=== PATIENT | male | born 1975 | race Caucasian/White ===

== ENCOUNTER 2017-08-13 22:43 | Inpatient (IN) | payer MEDICARE, MEDICAID ==
[2017-08-13] MEDS ORDERED: Diltiazem 25 MG/5 ML SDV IVPUSH ONE ×2 (23:09→23:39)
--- NOTE | 2017-08-13 23:14 | EDM.PDOC ---
ED HPI GENERAL MEDICAL PROBLEM - General Stated Complaint: CHEST PAIN Time Seen by Provider: 08/13/17 22:55 Source of Information: Reports: Patient History Limitations: Reports: No Limitations - History of Present Illness INITIAL COMMENTS - FREE TEXT/NARRATIVE: c/o palpitations in good health, 1h [employer] he had palpitations, chest tightness and pain down his LUE smokes 1 ppd similar episode once a number of yrs ago, came to ED and exam was fine then no prior CV or pul problems HR 175 on arrival, EKG with AF with RVR and rate 167, then he coughed and rate dropped to 85 and sxs resolved, however another EKG showed AF with RVR and rate 189, dilt 20 mg IV ordered no other sxs - Related Data Allergies Allergy/AdvReac Type Severity Reaction Status Date / Time No Known Allergies Allergy Verified 08/13/17 23:39 Home Meds: Home Meds hydrOXYzine Pamoate [Vistaril] 100 mg PO Q6H PRN 07/30/14 [History] DULoxetine [Cymbalta] 60 mg PO DAILY 10/26/14 [History] Aspirin 325 mg PO DAILY 03/22/15 [History] Gabapentin [Neurontin] 300 mg PO TID 03/22/15 [History] Meloxicam [Mobic] 7.5 mg PO BID PRN 08/26/15 [History] Past Medical History - Past Health History Medical/Surgical History: Denies Medical/Surgical History Respiratory History: Reports: Bronchitis, Recurrent Other Respiratory History: BRONCHITIS, USES INHAILER Gastrointestinal History: Reports: GERD Other Gastrointestinal History: occ dearrhea Musculoskeletal History: Reports: Back Pain, Chronic Neurological History: Reports: Other (See Below) Other Neuro History: SIATICA Psychiatric History: Reports: Anxiety, Bipolar, Depression, Panic Attack - Past Surgical History GI Surgical History: Reports: Other (See Below) Social & Family History - Tobacco Use Smoking Status *Q: Current Every Day Smoker Years of Tobacco use: 10 Packs/Tins Daily: 1 - Alcohol Use Days Per Week of Alcohol Use: 0 - Recreational Drug Use Recreational Drug Use: No - Living Situation & Occupation Living situation: Reports: with Significant Other Occupation: Employed ED ROS GENERAL - Review of Systems Review Of Systems: See Below Constitutional: Reports: No Symptoms HEENT: Reports: No Symptoms Respiratory: Reports: No Symptoms Cardiovascular: Reports: Chest Pain, Palpitations Endocrine: Reports: No Symptoms GI/Abdominal: Reports: No Symptoms : Reports: No Symptoms Musculoskeletal: Reports: No Symptoms Skin: Reports: No Symptoms Neurological: Reports: No Symptoms Psychiatric: Reports: No Symptoms Hematologic/Lymphatic: Reports: No Symptoms Immunologic: Reports: No Symptoms ED EXAM, GENERAL - Physical Exam Exam: See Below Exam Limited By: No Limitations General Appearance: Alert, WD/WN, No Apparent Distress, Other (alert, pleasant, cooperative, nonill) Eye Exam: Bilateral Eye: Normal Inspection Ears: Normal External Exam, Normal Canal Nose: Normal Inspection Throat/Mouth: Normal Inspection, Normal Lips, Normal Teeth, Normal Gums, Normal Oropharynx, Normal Voice, No Airway Compromise Head: Atraumatic, Normocephalic Neck: Normal Inspection, Supple, Non-Tender, Full Range of Motion Respiratory/Chest: No Respiratory Distress, Lungs Clear, Normal Breath Sounds, No Accessory Muscle Use, Chest Non-Tender Cardiovascular: No Edema, No Gallop, No JVD, Tachycardia, Irregularly Irregular , Other (2/6 ABISAI at LSB) GI/Abdominal: Soft, Non-Tender, No Distention Back Exam: Normal Inspection, Full Range of Motion, NT Extremities: Normal Inspection, Normal Range of Motion, Non-Tender, No Pedal Edema Neurological: Alert, Oriented, CN II-XII Intact, Normal Cognition, No Motor/ Sensory Deficits Psychiatric: Normal Affect, Normal Mood Skin Exam: Warm, Dry, Intact, Normal Color, No Rash Lymphatic: No Adenopathy Course - Vital Signs Last Recorded V/S: Last Vital Signs Temp 36.5 C 08/13/17 23:42 Pulse 176 H 08/13/17 23:42 Resp 24 H 08/13/17 23:42 BP 137/94 H 08/13/17 23:49 Pulse Ox 99 08/13/17 23:42 - Orders/Labs/Meds Orders: Active Orders 24 hr Category Date Time Status EKG Documentation Completion [RC] ASDIRECTED Care 08/13/17 23:05 Active Chest 2V [CR] Stat Exams 08/13/17 23:05 Taken DD [D-DIMER QUANTITATIVE] [COAG] Stat Lab 08/14/17 02:02 Ordered UA W/MICROSCOPIC [URIN] Stat Lab 08/14/17 00:25 Ordered Sodium Chloride 0.9% [Normal Saline] 1,000 ml Med 08/13/17 23:15 Active IV ASDIRECTED Sodium Chloride 0.9% [Normal Saline] 1,000 ml Med 08/14/17 00:30 Active IV ASDIRECTED EKG 12 Lead [EK] Routine Ther 08/13/17 23:04 Ordered Medication Orders Sodium Chloride (Normal Saline) 1,000 mls @ 0 mls/hr IV ASDIRECTED PENNY Stop: 08/17/17 23:04 Last Infusion: 08/14/17 00:26 Dose: 999 mls/hr Admin: 08/13/17 23:32 Dose: 25 mls/hr Sodium Chloride (Normal Saline) 1,000 mls @ 999 mls/hr IV ASDIRECTED PENNY Last Admin: 08/14/17 01:31 Dose: 999 mls/hr Labs: Laboratory Tests 08/13/17 08/13/17 08/13/17 Range/Units 23:15 23:15 23:15 WBC 10.9 (4.5-12.0) X10-3/uL RBC 5.13 (4.30-5.75) x10(6)uL Hgb 16.6 H (11.5-15.5) g/dL Hct 47.7 (30.0-51.3) % MCV 93.0 (80-96) fL MCH 32.4 (27.7-33.6) pg MCHC 34.9 (32.2-35.4) g/dL RDW 12.2 (11.5-15.5) % Plt Count 271 (125-369) X10(3)uL MPV 7.8 (7.4-10.4) fL Neut % (Auto) 52.4 (46-82) % Lymph % (Auto) 34.8 (13-37) % Valley % (Auto) 6.4 (4-12) % Eos % (Auto) 4 (1.0-5.0) % Baso % (Auto) 3 H (0-2) % Neut # (Auto) 5.7 (1.6-8.3) # Lymph # (Auto) 3.8 (0.6-5.0) # Valley # (Auto) 0.7 (0.0-1.3) # Eos # (Auto) 0.4 (0.0-0.8) # Baso # (Auto) 0.3 H (0.0-0.2) # PT (8.7-11.1) INR (0.89-1.13) Sodium 138 (135-145) mmol/L Potassium 3.5 (3.5-5.3) mmol/L Chloride 101 (100-110) mmol/L Carbon Dioxide 24 (21-32) mmol/L BUN 9 (7-18) mg/dL Creatinine 0.9 (0.70-1.30) mg/dL Est Cr Clr Drug Dosing TNP Estimated GFR (MDRD) > 60 (>60) BUN/Creatinine Ratio 10.0 (9-20) Glucose 145 H (80-116) mg/dL Calcium 8.8 (8.6-10.2) mg/dL Total Bilirubin 0.5 (0.1-1.3) mg/dL AST 10 (5-25) IU/L ALT 60 H (12-36) U/L Alkaline Phosphatase 98 (56-112) IU/L Troponin I < 0.017 L (<0.017-0.056) ng/mL C-Reactive Protein < 0.2 L (0.5-0.9) mg/dL NT-Pro-B Natriuret Pep 6 (<=125) pg/mL Total Protein 7.8 (6.0-8.0) g/dL Albumin 4.0 (3.5-5.2) g/dL Globulin 3.8 g/dL Albumin/Globulin Ratio 1.1 TSH, Ultra Sensitive 4.15 H (0.36-3.74) IU/mL Urine Color (YELLOW) Urine Appearance (CLEAR) Urine pH (5.0-6.5) Ur Specific Holloway (1.010-1.025) Urine Protein (NEGATIVE) mg/dL Urine Glucose (UA) (NEGATIVE) mg/dL Urine Ketones (NEGATIVE) mg/dL Urine Occult Blood (NEGATIVE) Urine Nitrite (NEGATIVE) Urine Bilirubin (NEGATIVE) Urine Urobilinogen (NEGATIVE) mg/dL Ur Leukocyte Esterase (NEGATIVE) Urine RBC (0) Urine WBC (0) Ur Squamous Epith Cells (NS,R,O) Urine Bacteria (NS) 08/13/17 08/14/17 Range/Units 23:15 00:25 WBC (4.5-12.0) X10-3/uL RBC (4.30-5.75) x10(6)uL Hgb (11.5-15.5) g/dL Hct (30.0-51.3) % MCV (80-96) fL MCH (27.7-33.6) pg MCHC (32.2-35.4) g/dL RDW (11.5-15.5) % Plt Count (125-369) X10(3)uL MPV (7.4-10.4) fL Neut % (Auto) (46-82) % Lymph % (Auto) (13-37) % Valley % (Auto) (4-12) % Eos % (Auto) (1.0-5.0) % Baso % (Auto) (0-2) % Neut # (Auto) (1.6-8.3) # Lymph # (Auto) (0.6-5.0) # Valley # (Auto) (0.0-1.3) # Eos # (Auto) (0.0-0.8) # Baso # (Auto) (0.0-0.2) # PT 10.0 (8.7-11.1) INR 0.99 (0.89-1.13) Sodium (135-145) mmol/L Potassium (3.5-5.3) mmol/L Chloride (100-110) mmol/L Carbon Dioxide (21-32) mmol/L BUN (7-18) mg/dL Creatinine (0.70-1.30) mg/dL Est Cr Clr Drug Dosing Estimated GFR (MDRD) (>60) BUN/Creatinine Ratio (9-20) Glucose (80-116) mg/dL Calcium (8.6-10.2) mg/dL Total Bilirubin (0.1-1.3) mg/dL AST (5-25) IU/L ALT (12-36) U/L Alkaline Phosphatase (56-112) IU/L Troponin I (<0.017-0.056) ng/mL C-Reactive Protein (0.5-0.9) mg/dL NT-Pro-B Natriuret Pep (<=125) pg/mL Total Protein (6.0-8.0) g/dL Albumin (3.5-5.2) g/dL Globulin g/dL Albumin/Globulin Ratio TSH, Ultra Sensitive (0.36-3.74) IU/mL Urine Color Yellow (YELLOW) Urine Appearance Clear (CLEAR) Urine pH 5.0 (5.0-6.5) Ur Specific [place]ay 1.010 (1.010-1.025) Urine Protein Negative (NEGATIVE) mg/dL Urine Glucose (UA) Normal (NEGATIVE) mg/dL Urine Ketones Negative (NEGATIVE) mg/dL Urine Occult Blood Negative (NEGATIVE) Urine Nitrite Negative (NEGATIVE) Urine Bilirubin Negative (NEGATIVE) Urine Urobilinogen Normal (NEGATIVE) mg/dL Ur Leukocyte Esterase Negative (NEGATIVE) Urine RBC 0-5 (0) Urine WBC 0-5 (0) Ur Squamous Epith Cells Occasional (NS,R,O) Urine Bacteria Rare H (NS) Meds: Medications Generic Name Dose Route Start Last Admin Trade Name Freq PRN Reason Stop Dose Admin Sodium Chloride 1,000 mls @ 0 mls/hr 08/13/17 23:15 08/14/17 00:26 Normal Saline IV 08/17/17 23:04 999 mls/hr ASDIRECTED PENNY Infusion KVO Sodium Chloride 1,000 mls @ 999 mls/hr 08/14/17 00:30 08/14/17 01:31 Normal Saline IV 999 mls/hr ASDIRECTED PENNY Administration Discontinued Medications Generic Name Dose Route Start Last Admin Trade Name Freq PRN Reason Stop Dose Admin Aspirin 324 mg 08/13/17 23:17 08/13/17 23:24 Aspirin PO 08/13/17 23:18 324 mg ONETIME ONE Administration Diltiazem HCl 20 mg 08/13/17 23:09 08/13/17 23:24 Diltiazem IVPUSH 08/13/17 23:10 20 mg ONETIME ONE Administration Diltiazem HCl 20 mg 08/13/17 23:39 08/13/17 23:49 Diltiazem IVPUSH 08/13/17 23:40 20 mg ONETIME ONE Administration - Re-Assessments/Exams Free Text/Narrative Re-Assessment/Exam: 08/14/17 02:06 CxR neg, EKG suggests recent posterior infarct altho shows no acute change c/w previous 03-22-15, nevertheless will obtain a d-dimer and admit to r/o [facility] has had palpitations at least 2x in past altho there is no record of previous AF pt has moderate dehydration with low BP (improved with IVF) and elevated hgb dehydration and caffeine abuse may have triggered AF, yet pt also a smoker and at risk for CAD will need to admit to r/o [place] also with inc'd ALT 60 of unclear clinical sig, has been inc'd in past CRP undetectable, no evidence of infection pt briefly converted to SR with cough, HR decreased 30 bpm after initial diltiazem 20 mg IV and then coverted to SR after a 2nd diltiazem 20 mg IV Departure - Departure Time of Disposition: 02:13 Disposition: Refer to Observation Condition: Good Clinical Impression: Chest pain, rule out acute myocardial infarction, Paroxysmal atrial fibrillation with rapid ventricular response, Moderate dehydration, Caffeine abuse, Current smoker, Hypotension, Elevated hemoglobin - Discharge Information Referrals: Idalia Santana NP [Primary Care Provider] - - My Orders Last 24 Hours: My Active Orders 08/13/17 23:04 EKG 12 Lead [EK] Routine 08/13/17 23:05 EKG Documentation Completion [RC] ASDIRECTED Chest 2V [CR] Stat 08/13/17 23:15 Sodium Chloride 0.9% [Normal Saline] 1,000 ml IV ASDIRECTED 08/14/17 00:25 UA W/MICROSCOPIC [URIN] Stat 08/14/17 00:30 Sodium Chloride 0.9% [Normal Saline] 1,000 ml IV ASDIRECTED 08/14/17 02:02 DD [D-DIMER QUANTITATIVE] [COAG] Stat - Assessment/Plan Last 24 Hours: My Active Orders 08/13/17 23:04 EKG 12 Lead [EK] Routine 08/13/17 23:05 EKG Documentation Completion [RC] ASDIRECTED Chest 2V [CR] Stat 08/13/17 23:15 Sodium Chloride 0.9% [Normal Saline] 1,000 ml IV ASDIRECTED 08/14/17 00:25 UA W/MICROSCOPIC [URIN] Stat 08/14/17 00:30 Sodium Chloride 0.9% [Normal Saline] 1,000 ml IV ASDIRECTED 08/14/17 02:02 DD [D-DIMER QUANTITATIVE] [COAG] Stat
[2017-08-13] MEDS ORDERED: Sodium Chloride 0.9% 1,000 ML IV SCH (23:15)
[2017-08-13] MEDS ORDERED: Aspirin 81 MG Tab.Chew PO ONE (23:17)
[2017-08-14] MEDS ORDERED: Sodium Chloride 0.9% 1,000 ML IV SCH ×2 (00:30→02:30)
[2017-08-14] MEDS ORDERED: Ondansetron 4 MG/2 ML SDV IV PRN (02:16)
[2017-08-14] MEDS ORDERED: Acetaminophen 325 MG Tab PO PRN (02:16)
[2017-08-14] MEDS ORDERED: HYDROXYZINE PAMOATE 100 MG PO PRN (02:25)
[2017-08-14] MEDS ORDERED: Heparin Sodium 5,000 Units/ML Vial IVPUSH ONE (08:16)
[2017-08-14] MEDS ORDERED: Heparin Sodium/0.45% NaCl 500 ML IV SCH (08:30)
[2017-08-14] MEDS ORDERED: Heparin Sodium/D5W 25,000 UNITS/500 ML BAG IV SCH (08:30)
[2017-08-14] MEDS ORDERED: Gabapentin 300 MG Cap PO SCH (09:00)
[2017-08-14] MEDS ORDERED: Non-Formulary Medication 1 Each (Aspirin [Aspirin] 325 MG) PO SCH (09:00)
[2017-08-14] MEDS ORDERED: DULoxetine 60 MG Cap PO SCH (09:00)
[2017-08-14] MEDS ORDERED: hydrOXYzine HCl 25 MG Tab PO PRN (10:03)
[2017-08-14] MEDS ORDERED: hydrOXYzine HCl 25 MG Tab PO ONE (10:04)
[2017-08-14] MEDS ORDERED: Gabapentin 600 MG Tab PO SCH (10:15)
--- NOTE | 2017-08-14 12:23 | CR ---
INDICATION: Atrial fibrillation, palpitations, chest pressure. CHEST: PA and lateral views of the chest, 08/14/2017, were compared with 2014 and revealed the heart to remain normal in size and shape. Mediastinum and bony thorax were unremarkable. Overlying EKG leads are noted. An active infiltrate or effusion was not identified, with some pleural thickening in the upper lung watson again noted, compatible with mild pleural fibrosis. IMPRESSION: No acute process. MTDD
[2017-08-14] MEDS ORDERED: Metoprolol Tartrate 25 MG Tab PO ONE (12:29)
--- NOTE | 2017-08-14 13:36 | PCM.HP ---
H&P History of Present Illness - General Date of Service: 08/14/17 Admit Problem/Dx: Admission Diagnosis/Problem Admission Diagnosis/Problem Chest pain, rule out acute myocardial infarction - Related Data Allergies/Adverse Reactions: Allergies Allergy/AdvReac Type Severity Reaction Status Date / Time No Known Allergies Allergy Verified 08/13/17 23:39 Home Medications: Home Meds hydrOXYzine Pamoate [Vistaril] 100 mg PO Q6H PRN 07/30/14 [History] DULoxetine [Cymbalta] 60 mg PO DAILY 10/26/14 [History] Gabapentin [Neurontin] 600 mg PO BID@08,1600 03/22/15 [History] Meloxicam [Mobic] 7.5 mg PO DAILY 08/26/15 [History] Aspirin [Ecotrin] 81 mg PO DAILY 08/14/17 [History] Lurasidone HCl [Latuda] 40 mg PO BEDTIME 08/14/17 [History] Meloxicam [Mobic] 7.5 mg PO DAILY PRN 08/14/17 [History] hydrOXYzine Pamoate [Hydroxyzine Pamoate] 25 mg PO DAILY 08/14/17 [History] hydrOXYzine Pamoate [Hydroxyzine Pamoate] 25 mg PO DAILY PRN 08/14/17 [History] Past Medical History - Past Health History Medical/Surgical History: Denies Medical/Surgical History HEENT History: Reports: Impaired Vision Other HEENT History: wears glasses Cardiovascular History: Reports: Other (See Below) Other Cardiovascular History: presented tonight with a-fib and rapid heartrate of 170 to ER Respiratory History: Reports: Bronchitis, Recurrent Other Respiratory History: BRONCHITIS, USES INHAILER does not use any more Gastrointestinal History: Reports: Colon Polyp, GERD, Hemorrhoids Other Gastrointestinal History: occ dearrhea Musculoskeletal History: Reports: Back Pain, Chronic Neurological History: Reports: Other (See Below) Other Neuro History: SIATICA Psychiatric History: Reports: Addiction, Anxiety, Bipolar, Depression, Panic Attack - Infectious Disease History Infectious Disease History: Reports: Chicken Pox - Past Surgical History HEENT Surgical History: Reports: None Cardiovascular Surgical History: Reports: None Respiratory Surgical History: Reports: None GI Surgical History: Reports: Colonoscopy, Hernia, Inguinal Neurological Surgical History: Reports: None Musculoskeletal Surgical History: Reports: None Dermatological Surgical History: Reports: None Social & Family History - Family History Family Medical History: Noncontributory - Tobacco Use Smoking Status *Q: Current Every Day Smoker Years of Tobacco use: 27 Packs/Tins Daily: 1 Second Hand Smoke Exposure: No - Caffeine Use Caffeine Use: Reports: Coffee - Alcohol Use Days Per Week of Alcohol Use: 0 - Recreational Drug Use Recreational Drug Use: No - Living Situation & Occupation Living situation: Reports: with Significant Other Occupation: Employed Exam - Vital Signs Vital Signs: Last Vital Signs Temp 97.8 F 08/14/17 07:30 Pulse 63 08/14/17 12:37 Resp 18 08/14/17 12:00 BP 135/90 08/14/17 12:37 Pulse Ox 99 08/14/17 12:00 Weight: 95.889 kg - Patient Data Lab Results Last 24 hrs: Laboratory Results - last 24 hr 08/13/17 08/13/17 08/13/17 Range/Units 23:15 23:15 23:15 WBC 10.9 (4.5-12.0) X10-3/uL RBC 5.13 (4.30-5.75) x10(6)uL Hgb 16.6 H (11.5-15.5) g/dL Hct 47.7 (30.0-51.3) % MCV 93.0 (80-96) fL MCH 32.4 (27.7-33.6) pg MCHC 34.9 (32.2-35.4) g/dL RDW 12.2 (11.5-15.5) % Plt Count 271 (125-369) X10(3)uL MPV 7.8 (7.4-10.4) fL Neut % (Auto) 52.4 (46-82) % Lymph % (Auto) 34.8 (13-37) % [place] % (Auto) 6.4 (4-12) % Eos % (Auto) 4 (1.0-5.0) % Baso % (Auto) 3 H (0-2) % Neut # (Auto) 5.7 (1.6-8.3) # Lymph # (Auto) 3.8 (0.6-5.0) # [place] # (Auto) 0.7 (0.0-1.3) # Eos # (Auto) 0.4 (0.0-0.8) # Baso # (Auto) 0.3 H (0.0-0.2) # PT (8.7-11.1) INR (0.89-1.13) APTT (24.4-33.2) SECONDS D-Dimer, Quantitative (100-400) ng/mL Sodium 138 (135-145) mmol/L Potassium 3.5 (3.5-5.3) mmol/L Chloride 101 (100-110) mmol/L Carbon Dioxide 24 (21-32) mmol/L BUN 9 (7-18) mg/dL Creatinine 0.9 (0.70-1.30) mg/dL Est Cr Clr Drug Dosing TNP Estimated GFR (MDRD) > 60 (>60) BUN/Creatinine Ratio 10.0 (9-20) Glucose 145 H (80-116) mg/dL POC Glucose (80-116) mg/dL Calcium 8.8 (8.6-10.2) mg/dL Total Bilirubin 0.5 (0.1-1.3) mg/dL AST 10 (5-25) IU/L ALT 60 H (12-36) U/L Alkaline Phosphatase 98 (56-112) IU/L Troponin I < 0.017 L (<0.017-0.056) ng/mL C-Reactive Protein < 0.2 L (0.5-0.9) mg/dL NT-Pro-B Natriuret Pep 6 (<=125) pg/mL Total Protein 7.8 (6.0-8.0) g/dL Albumin 4.0 (3.5-5.2) g/dL Globulin 3.8 g/dL Albumin/Globulin Ratio 1.1 TSH, Ultra Sensitive 4.15 H (0.36-3.74) IU/mL Urine Color (YELLOW) Urine Appearance (CLEAR) Urine pH (5.0-6.5) Ur Specific [place] (1.010-1.025) Urine Protein (NEGATIVE) mg/dL Urine Glucose (UA) (NEGATIVE) mg/dL Urine Ketones (NEGATIVE) mg/dL Urine Occult Blood (NEGATIVE) Urine Nitrite (NEGATIVE) Urine Bilirubin (NEGATIVE) Urine Urobilinogen (NEGATIVE) mg/dL Ur Leukocyte Esterase (NEGATIVE) Urine RBC (0) Urine WBC (0) Ur Squamous Epith Cells (NS,R,O) Urine Bacteria (NS) 04/10/18 04/10/18 04/11/18 Range/Units 23:15 23:15 00:05 WBC (4.5-12.0) X10-3/uL RBC (4.30-5.75) x10(6)uL Hgb (11.5-15.5) g/dL Hct (30.0-51.3) % MCV (80-96) fL MCH (27.7-33.6) pg MCHC (32.2-35.4) g/dL RDW (11.5-15.5) % Plt Count (125-369) X10(3)uL MPV (7.4-10.4) fL Neut % (Auto) (46-82) % Lymph % (Auto) (13-37) % [place] % (Auto) (4-12) % Eos % (Auto) (1.0-5.0) % Baso % (Auto) (0-2) % Neut # (Auto) (1.6-8.3) # Lymph # (Auto) (0.6-5.0) # [place] # (Auto) (0.0-1.3) # Eos # (Auto) (0.0-0.8) # Baso # (Auto) (0.0-0.2) # PT 10.0 (8.7-11.1) INR 0.99 (0.89-1.13) APTT 29.0 (24.4-33.2) SECONDS D-Dimer, Quantitative < 100 L (100-400) ng/mL Sodium (135-145) mmol/L Potassium (3.5-5.3) mmol/L Chloride (100-110) mmol/L Carbon Dioxide (21-32) mmol/L BUN (7-18) mg/dL Creatinine (0.70-1.30) mg/dL Est Cr Clr Drug Dosing Estimated GFR (MDRD) (>60) BUN/Creatinine Ratio (9-20) Glucose (80-116) mg/dL POC Glucose (80-116) mg/dL Calcium (8.6-10.2) mg/dL Total Bilirubin (0.1-1.3) mg/dL AST (5-25) IU/L ALT (12-36) U/L Alkaline Phosphatase (56-112) IU/L Troponin I (<0.017-0.056) ng/mL C-Reactive Protein (0.5-0.9) mg/dL NT-Pro-B Natriuret Pep (<=125) pg/mL Total Protein (6.0-8.0) g/dL Albumin (3.5-5.2) g/dL Globulin g/dL Albumin/Globulin Ratio TSH, Ultra Sensitive (0.36-3.74) IU/mL Urine Color (YELLOW) Urine Appearance (CLEAR) Urine pH (5.0-6.5) Ur Specific [place] (1.010-1.025) Urine Protein (NEGATIVE) mg/dL Urine Glucose (UA) (NEGATIVE) mg/dL Urine Ketones (NEGATIVE) mg/dL Urine Occult Blood (NEGATIVE) Urine Nitrite (NEGATIVE) Urine Bilirubin (NEGATIVE) Urine Urobilinogen (NEGATIVE) mg/dL Ur Leukocyte Esterase (NEGATIVE) Urine RBC (0) Urine WBC (0) Ur Squamous Epith Cells (NS,R,O) Urine Bacteria (NS) 08/14/17 08/14/17 08/14/17 Range/Units 00:25 06:21 06:21 WBC 9.0 (4.5-12.0) X10-3/uL RBC 4.22 L (4.30-5.75) x10(6)uL Hgb 14.0 (11.5-15.5) g/dL Hct 39.3 (30.0-51.3) % MCV 93.1 (80-96) fL MCH 33.0 (27.7-33.6) pg MCHC 35.5 H (32.2-35.4) g/dL RDW 11.9 (11.5-15.5) % Plt Count 242 (125-369) X10(3)uL MPV 7.2 L (7.4-10.4) fL Neut % (Auto) 54.7 (46-82) % Lymph % (Auto) 33.7 (13-37) % [place] % (Auto) 6.8 (4-12) % Eos % (Auto) 4 (1.0-5.0) % Baso % (Auto) 1 (0-2) % Neut # (Auto) 4.9 (1.6-8.3) # Lymph # (Auto) 3.0 (0.6-5.0) # [place] # (Auto) 0.6 (0.0-1.3) # Eos # (Auto) 0.4 (0.0-0.8) # Baso # (Auto) 0.1 (0.0-0.2) # PT (8.7-11.1) INR (0.89-1.13) APTT (24.4-33.2) SECONDS D-Dimer, Quantitative (100-400) ng/mL Sodium (135-145) mmol/L Potassium (3.5-5.3) mmol/L Chloride (100-110) mmol/L Carbon Dioxide (21-32) mmol/L BUN (7-18) mg/dL Creatinine (0.70-1.30) mg/dL Est Cr Clr Drug Dosing Estimated GFR (MDRD) (>60) BUN/Creatinine Ratio (9-20) Glucose (80-116) mg/dL POC Glucose (80-116) mg/dL Calcium (8.6-10.2) mg/dL Total Bilirubin (0.1-1.3) mg/dL AST (5-25) IU/L ALT (12-36) U/L Alkaline Phosphatase (56-112) IU/L Troponin I 1.402 H* (<0.017-0.056) ng/mL C-Reactive Protein (0.5-0.9) mg/dL NT-Pro-B Natriuret Pep (<=125) pg/mL Total Protein (6.0-8.0) g/dL Albumin (3.5-5.2) g/dL Globulin g/dL Albumin/Globulin Ratio TSH, Ultra Sensitive (0.36-3.74) IU/mL Urine Color Yellow (YELLOW) Urine Appearance Clear (CLEAR) Urine pH 5.0 (5.0-6.5) Ur Specific [place] 1.010 (1.010-1.025) Urine Protein Negative (NEGATIVE) mg/dL Urine Glucose (UA) Normal (NEGATIVE) mg/dL Urine Ketones Negative (NEGATIVE) mg/dL Urine Occult Blood Negative (NEGATIVE) Urine Nitrite Negative (NEGATIVE) Urine Bilirubin Negative (NEGATIVE) Urine Urobilinogen Normal (NEGATIVE) mg/dL Ur Leukocyte Esterase Negative (NEGATIVE) Urine RBC 0-5 (0) Urine WBC 0-5 (0) Ur Squamous Epith Cells Occasional (NS,R,O) Urine Bacteria Rare H (NS) 08/14/17 08/14/17 08/14/17 Range/Units 07:13 11:00 13:13 WBC (4.5-12.0) X10-3/uL RBC (4.30-5.75) x10(6)uL Hgb (11.5-15.5) g/dL Hct (30.0-51.3) % MCV (80-96) fL MCH (27.7-33.6) pg MCHC (32.2-35.4) g/dL RDW (11.5-15.5) % Plt Count (125-369) X10(3)uL MPV (7.4-10.4) fL Neut % (Auto) (46-82) % Lymph % (Auto) (13-37) % [place] % (Auto) (4-12) % Eos % (Auto) (1.0-5.0) % Baso % (Auto) (0-2) % Neut # (Auto) (1.6-8.3) # Lymph # (Auto) (0.6-5.0) # [place] # (Auto) (0.0-1.3) # Eos # (Auto) (0.0-0.8) # Baso # (Auto) (0.0-0.2) # PT (8.7-11.1) INR (0.89-1.13) APTT (24.4-33.2) SECONDS D-Dimer, Quantitative (100-400) ng/mL Sodium (135-145) mmol/L Potassium (3.5-5.3) mmol/L Chloride (100-110) mmol/L Carbon Dioxide (21-32) mmol/L BUN (7-18) mg/dL Creatinine (0.70-1.30) mg/dL Est Cr Clr Drug Dosing Estimated GFR (MDRD) (>60) BUN/Creatinine Ratio (9-20) Glucose (80-116) mg/dL POC Glucose 118 H 101 (80-116) mg/dL Calcium (8.6-10.2) mg/dL Total Bilirubin (0.1-1.3) mg/dL AST (5-25) IU/L ALT (12-36) U/L Alkaline Phosphatase (56-112) IU/L Troponin I 1.178 H* (<0.017-0.056) ng/mL C-Reactive Protein (0.5-0.9) mg/dL NT-Pro-B Natriuret Pep (<=125) pg/mL Total Protein (6.0-8.0) g/dL Albumin (3.5-5.2) g/dL Globulin g/dL Albumin/Globulin Ratio TSH, Ultra Sensitive (0.36-3.74) IU/mL Urine Color (YELLOW) Urine Appearance (CLEAR) Urine pH (5.0-6.5) Ur Specific [place] (1.010-1.025) Urine Protein (NEGATIVE) mg/dL Urine Glucose (UA) (NEGATIVE) mg/dL Urine Ketones (NEGATIVE) mg/dL Urine Occult Blood (NEGATIVE) Urine Nitrite (NEGATIVE) Urine Bilirubin (NEGATIVE) Urine Urobilinogen (NEGATIVE) mg/dL Ur Leukocyte Esterase (NEGATIVE) Urine RBC (0) Urine WBC (0) Ur Squamous Epith Cells (NS,R,O) Urine Bacteria (NS) Result Diagrams: 08/14/17 06:21 08/13/17 23:15 Orders Last 24hrs: Active Orders 24 hr Category Date Time Status Admission Status [Patient Status] [ADT] Routine ADT 08/14/17 02:04 Active Patient Status [ADT] Routine ADT 08/14/17 10:00 Active Transfer Patient (Change bed) [ADT] Routine ADT 08/14/17 08:35 Ordered Blood Glucose Check, Bedside [RC] QIDACANDBED Care 08/14/17 02:16 Active Cardiac Monitoring [RC] .As Directed Care 08/14/17 02:16 Active Oxygen Therapy [RC] PRN Care 08/14/17 02:17 Active Up ad [place] [RC] ASDIRECTED Care 08/14/17 02:16 Active VTE/DVT Education [RC] Per Unit Routine Care 08/14/17 02:17 Active Vital Signs [RC] 00,04,08,12,16,20 Care 08/14/17 02:17 Active Heart Healthy Diet [DIET] Diet 08/14/17 Breakfast Active CBC WITH AUTO DIFF [HEME] DAILY Lab 08/15/17 06:00 Ordered FREE T4 [REF] Routine Lab 08/14/17 06:21 Received GLYCOSYLATED HEMOGLOBIN,HGBA1C [CHEM] AM Lab 08/15/17 05:11 Ordered OCCULT BLOOD DIAGNOSTIC [OP] Stat Lab 08/14/17 08:16 Ordered PTT,PARTIAL THROMBOPLSTIN TIME [COAG] Q6H Lab 08/14/17 14:30 Ordered PTT,PARTIAL THROMBOPLSTIN TIME [COAG] Q6H Lab 08/14/17 20:30 Ordered PTT,PARTIAL THROMBOPLSTIN TIME [COAG] Q6H Lab 08/15/17 02:30 Ordered PTT,PARTIAL THROMBOPLSTIN TIME [COAG] Q6H Lab 08/15/17 08:30 Ordered PTT,PARTIAL THROMBOPLSTIN TIME [COAG] Q6H Lab 08/15/17 14:30 Ordered PTT,PARTIAL THROMBOPLSTIN TIME [COAG] Q6H Lab 08/15/17 20:30 Ordered UA W/MICROSCOPIC [URIN] Stat Lab 08/14/17 00:25 Ordered Acetaminophen [Tylenol] Med 08/14/17 02:16 Active 650 mg PO Q4H PRN Aspirin [Halfprin] Med 08/15/17 09:00 Active 81 mg PO DAILY DULoxetine [Cymbalta] Med 08/14/17 09:00 Active 60 mg PO DAILY Gabapentin [Neurontin] Med 08/14/17 10:15 Active 600 mg PO BID Heparin Sodium/0.45% NaCl [Heparin 25,000 Units in 1/2 Med 08/14/17 08:30 Active NS 500 ML] 500 ml IV TITRATE Lurasidone HCl [Latuda] Med 08/14/17 21:00 Active 0 mg PO BEDTIME Meloxicam [Mobic] Med 08/15/17 09:00 Active 7.5 mg PO DAILY Sodium Chloride 0.9% [Normal Saline] 1,000 ml Med 08/14/17 02:30 Active IV ASDIRECTED hydrOXYzine HCl [Atarax] Med 08/15/17 09:00 Active 25 mg PO DAILY hydrOXYzine HCl [Atarax] Med 08/14/17 10:03 Active 25 mg PO DAILY PRN Resuscitation Status Routine Resus Stat 08/14/17 02:16 Ordered EKG 12 Lead [EK] Routine Ther 08/13/17 23:04 Ordered EKG 12 Lead [EK] Routine Ther 08/14/17 06:00 Ordered Medication Orders Acetaminophen (Tylenol) 650 mg PO Q4H PRN PRN Reason: Pain (Mild 1-3)/fever Aspirin (Halfprin) 81 mg PO DAILY PENNY Duloxetine HCl (Cymbalta) 60 mg PO DAILY PENNY Last Admin: 08/14/17 11:37 Dose: 60 mg Gabapentin (Neurontin) 600 mg PO BID PENNY Last Admin: 08/14/17 11:36 Dose: 600 mg Hydroxyzine HCl (Atarax) 25 mg PO DAILY PENNY Hydroxyzine HCl (Atarax) 25 mg PO DAILY PRN PRN Reason: Anxiety Sodium Chloride (Normal Saline) 1,000 mls @ 75 mls/hr IV ASDIRECTED PENNY Last Admin: 08/14/17 02:40 Dose: 75 mls/hr Heparin Sodium/Sodium Chloride (Heparin 25,000 Units In 1/2 Ns 500 Ml) 500 mls @ 20.002 mls/hr IV TITRATE PENNY; Protocol Last Admin: 08/14/17 09:03 Dose: 10.43 units/kg/hr, 20.002 mls/hr Meloxicam (Mobic) 7.5 mg PO DAILY PENNY Latuda 80mg *Ptom 0 mg PO BEDTIME PENNY
--- NOTE | 2017-08-14 13:37 | PCM.DCSUM1 ---
Discharge Summary - Discharge Data Discharge Date: 08/14/17 Discharge Disposition: DC/Tfer to Acute Hospital 02 Condition: Fair - Discharge Plan Home Medications: Home Meds hydrOXYzine Pamoate [Vistaril] 100 mg PO Q6H PRN 07/30/14 [History] DULoxetine [Cymbalta] 60 mg PO DAILY 10/26/14 [History] Gabapentin [Neurontin] 600 mg PO BID@08,1600 03/22/15 [History] Meloxicam [Mobic] 7.5 mg PO DAILY 08/26/15 [History] Aspirin [Ecotrin] 81 mg PO DAILY 08/14/17 [History] Lurasidone HCl [Latuda] 40 mg PO BEDTIME 08/14/17 [History] Meloxicam [Mobic] 7.5 mg PO DAILY PRN 08/14/17 [History] hydrOXYzine Pamoate [Hydroxyzine Pamoate] 25 mg PO DAILY 08/14/17 [History] hydrOXYzine Pamoate [Hydroxyzine Pamoate] 25 mg PO DAILY PRN 08/14/17 [History] Patient Handouts: Steps to Quit Smoking, [id number], Nonspecific Chest Pain, Cardiac-Specific Troponin I and T Test, Angina Pectoris, Atrial Fibrillation, [id number], Venous Thromboembolism Prevention Forms: ED Department Discharge Referrals: Idalia Santana NP [Primary Care Provider] - - Patient Data Vitals - Most Recent: Last Vital Signs Temp 97.8 F 08/14/17 07:30 Pulse 63 08/14/17 12:37 Resp 18 08/14/17 12:00 BP 135/90 08/14/17 12:37 Pulse Ox 99 08/14/17 12:00 Weight - Most Recent: 95.889 kg I&O - Last 24 hours: Intake & Output 08/13/17 08/14/17 08/14/17 22:59 06:59 14:59 Intake Total 375 Balance 375 Lab Results - Last 24 hrs: Laboratory Results - last 24 hr 08/13/17 08/13/17 08/13/17 Range/Units 23:15 23:15 23:15 WBC 10.9 (4.5-12.0) X10-3/uL RBC 5.13 (4.30-5.75) x10(6)uL Hgb 16.6 H (11.5-15.5) g/dL Hct 47.7 (30.0-51.3) % MCV 93.0 (80-96) fL MCH 32.4 (27.7-33.6) pg MCHC 34.9 (32.2-35.4) g/dL RDW 12.2 (11.5-15.5) % Plt Count 271 (125-369) X10(3)uL MPV 7.8 (7.4-10.4) fL Neut % (Auto) 52.4 (46-82) % Lymph % (Auto) 34.8 (13-37) % [place] % (Auto) 6.4 (4-12) % Eos % (Auto) 4 (1.0-5.0) % Baso % (Auto) 3 H (0-2) % Neut # (Auto) 5.7 (1.6-8.3) # Lymph # (Auto) 3.8 (0.6-5.0) # [place] # (Auto) 0.7 (0.0-1.3) # Eos # (Auto) 0.4 (0.0-0.8) # Baso # (Auto) 0.3 H (0.0-0.2) # PT (8.7-11.1) INR (0.89-1.13) APTT (24.4-33.2) SECONDS D-Dimer, Quantitative (100-400) ng/mL Sodium 138 (135-145) mmol/L Potassium 3.5 (3.5-5.3) mmol/L Chloride 101 (100-110) mmol/L Carbon Dioxide 24 (21-32) mmol/L BUN 9 (7-18) mg/dL Creatinine 0.9 (0.70-1.30) mg/dL Est Cr Clr Drug Dosing TNP Estimated GFR (MDRD) > 60 (>60) BUN/Creatinine Ratio 10.0 (9-20) Glucose 145 H (80-116) mg/dL POC Glucose (80-116) mg/dL Calcium 8.8 (8.6-10.2) mg/dL Total Bilirubin 0.5 (0.1-1.3) mg/dL AST 10 (5-25) IU/L ALT 60 H (12-36) U/L Alkaline Phosphatase 98 (56-112) IU/L Troponin I < 0.017 L (<0.017-0.056) ng/mL C-Reactive Protein < 0.2 L (0.5-0.9) mg/dL NT-Pro-B Natriuret Pep 6 (<=125) pg/mL Total Protein 7.8 (6.0-8.0) g/dL Albumin 4.0 (3.5-5.2) g/dL Globulin 3.8 g/dL Albumin/Globulin Ratio 1.1 TSH, Ultra Sensitive 4.15 H (0.36-3.74) IU/mL Urine Color (YELLOW) Urine Appearance (CLEAR) Urine pH (5.0-6.5) Ur Specific [place] (1.010-1.025) Urine Protein (NEGATIVE) mg/dL Urine Glucose (UA) (NEGATIVE) mg/dL Urine Ketones (NEGATIVE) mg/dL Urine Occult Blood (NEGATIVE) Urine Nitrite (NEGATIVE) Urine Bilirubin (NEGATIVE) Urine Urobilinogen (NEGATIVE) mg/dL Ur Leukocyte Esterase (NEGATIVE) Urine RBC (0) Urine WBC (0) Ur Squamous Epith Cells (NS,R,O) Urine Bacteria (NS) 08/13/17 08/13/17 08/14/17 Range/Units 23:15 23:15 00:05 WBC (4.5-12.0) X10-3/uL RBC (4.30-5.75) x10(6)uL Hgb (11.5-15.5) g/dL Hct (30.0-51.3) % MCV (80-96) fL MCH (27.7-33.6) pg MCHC (32.2-35.4) g/dL RDW (11.5-15.5) % Plt Count (125-369) X10(3)uL MPV (7.4-10.4) fL Neut % (Auto) (46-82) % Lymph % (Auto) (13-37) % [place] % (Auto) (4-12) % Eos % (Auto) (1.0-5.0) % Baso % (Auto) (0-2) % Neut # (Auto) (1.6-8.3) # Lymph # (Auto) (0.6-5.0) # [place]arton # (Auto) (0.0-1.3) # Eos # (Auto) (0.0-0.8) # Baso # (Auto) (0.0-0.2) # PT 10.0 (8.7-11.1) INR 0.99 (0.89-1.13) APTT 29.0 (24.4-33.2) SECONDS D-Dimer, Quantitative < 100 L (100-400) ng/mL Sodium (135-145) mmol/L Potassium (3.5-5.3) mmol/L Chloride (100-110) mmol/L Carbon Dioxide (21-32) mmol/L BUN (7-18) mg/dL Creatinine (0.70-1.30) mg/dL Est Cr Clr Drug Dosing Estimated GFR (MDRD) (>60) BUN/Creatinine Ratio (9-20) Glucose (80-116) mg/dL POC Glucose (80-116) mg/dL Calcium (8.6-10.2) mg/dL Total Bilirubin (0.1-1.3) mg/dL AST (5-25) IU/L ALT (12-36) U/L Alkaline Phosphatase (56-112) IU/L Troponin I (<0.017-0.056) ng/mL C-Reactive Protein (0.5-0.9) mg/dL NT-Pro-B Natriuret Pep (<=125) pg/mL Total Protein (6.0-8.0) g/dL Albumin (3.5-5.2) g/dL Globulin g/dL Albumin/Globulin Ratio TSH, Ultra Sensitive (0.36-3.74) IU/mL Urine Color (YELLOW) Urine Appearance (CLEAR) Urine pH (5.0-6.5) Ur Specific [place] (1.010-1.025) Urine Protein (NEGATIVE) mg/dL Urine Glucose (UA) (NEGATIVE) mg/dL Urine Ketones (NEGATIVE) mg/dL Urine Occult Blood (NEGATIVE) Urine Nitrite (NEGATIVE) Urine Bilirubin (NEGATIVE) Urine Urobilinogen (NEGATIVE) mg/dL Ur Leukocyte Esterase (NEGATIVE) Urine RBC (0) Urine WBC (0) Ur Squamous Epith Cells (NS,R,O) Urine Bacteria (NS) 08/14/17 08/14/17 08/14/17 Range/Units 00:25 06:21 06:21 WBC 9.0 (4.5-12.0) X10-3/uL RBC 4.22 L (4.30-5.75) x10(6)uL Hgb 14.0 (11.5-15.5) g/dL Hct 39.3 (30.0-51.3) % MCV 93.1 (80-96) fL MCH 33.0 (27.7-33.6) pg MCHC 35.5 H (32.2-35.4) g/dL RDW 11.9 (11.5-15.5) % Plt Count 242 (125-369) X10(3)uL MPV 7.2 L (7.4-10.4) fL Neut % (Auto) 54.7 (46-82) % Lymph % (Auto) 33.7 (13-37) % [place] % (Auto) 6.8 (4-12) % Eos % (Auto) 4 (1.0-5.0) % Baso % (Auto) 1 (0-2) % Neut # (Auto) 4.9 (1.6-8.3) # Lymph # (Auto) 3.0 (0.6-5.0) # [place]arton # (Auto) 0.6 (0.0-1.3) # Eos # (Auto) 0.4 (0.0-0.8) # Baso # (Auto) 0.1 (0.0-0.2) # PT (8.7-11.1) INR (0.89-1.13) APTT (24.4-33.2) SECONDS D-Dimer, Quantitative (100-400) ng/mL Sodium (135-145) mmol/L Potassium (3.5-5.3) mmol/L Chloride (100-110) mmol/L Carbon Dioxide (21-32) mmol/L BUN (7-18) mg/dL Creatinine (0.70-1.30) mg/dL Est Cr Clr Drug Dosing Estimated GFR (MDRD) (>60) BUN/Creatinine Ratio (9-20) Glucose (80-116) mg/dL POC Glucose (80-116) mg/dL Calcium (8.6-10.2) mg/dL Total Bilirubin (0.1-1.3) mg/dL AST (5-25) IU/L ALT (12-36) U/L Alkaline Phosphatase (56-112) IU/L Troponin I 1.402 H* (<0.017-0.056) ng/mL C-Reactive Protein (0.5-0.9) mg/dL NT-Pro-B Natriuret Pep (<=125) pg/mL Total Protein (6.0-8.0) g/dL Albumin (3.5-5.2) g/dL Globulin g/dL Albumin/Globulin Ratio TSH, Ultra Sensitive (0.36-3.74) IU/mL Urine Color Yellow (YELLOW) Urine Appearance Clear (CLEAR) Urine pH 5.0 (5.0-6.5) Ur Specific [place] 1.010 (1.010-1.025) Urine Protein Negative (NEGATIVE) mg/dL Urine Glucose (UA) Normal (NEGATIVE) mg/dL Urine Ketones Negative (NEGATIVE) mg/dL Urine Occult Blood Negative (NEGATIVE) Urine Nitrite Negative (NEGATIVE) Urine Bilirubin Negative (NEGATIVE) Urine Urobilinogen Normal (NEGATIVE) mg/dL Ur Leukocyte Esterase Negative (NEGATIVE) Urine RBC 0-5 (0) Urine WBC 0-5 (0) Ur Squamous Epith Cells Occasional (NS,R,O) Urine Bacteria Rare H (NS) 08/14/17 08/14/17 08/14/17 Range/Units 07:13 11:00 13:13 WBC (4.5-12.0) X10-3/uL RBC (4.30-5.75) x10(6)uL Hgb (11.5-15.5) g/dL Hct (30.0-51.3) % MCV (80-96) fL MCH (27.7-33.6) pg MCHC (32.2-35.4) g/dL RDW (11.5-15.5) % Plt Count (125-369) X10(3)uL MPV (7.4-10.4) fL Neut % (Auto) (46-82) % Lymph % (Auto) (13-37) % [place] % (Auto) (4-12) % Eos % (Auto) (1.0-5.0) % Baso % (Auto) (0-2) % Neut # (Auto) (1.6-8.3) # Lymph # (Auto) (0.6-5.0) # [place] # (Auto) (0.0-1.3) # Eos # (Auto) (0.0-0.8) # Baso # (Auto) (0.0-0.2) # PT (8.7-11.1) INR (0.89-1.13) APTT (24.4-33.2) SECONDS D-Dimer, Quantitative (100-400) ng/mL Sodium (135-145) mmol/L Potassium (3.5-5.3) mmol/L Chloride (100-110) mmol/L Carbon Dioxide (21-32) mmol/L BUN (7-18) mg/dL Creatinine (0.70-1.30) mg/dL Est Cr Clr Drug Dosing Estimated GFR (MDRD) (>60) BUN/Creatinine Ratio (9-20) Glucose (80-116) mg/dL POC Glucose 118 H 101 (80-116) mg/dL Calcium (8.6-10.2) mg/dL Total Bilirubin (0.1-1.3) mg/dL AST (5-25) IU/L ALT (12-36) U/L Alkaline Phosphatase (56-112) IU/L Troponin I 1.178 H* (<0.017-0.056) ng/mL C-Reactive Protein (0.5-0.9) mg/dL NT-Pro-B Natriuret Pep (<=125) pg/mL Total Protein (6.0-8.0) g/dL Albumin (3.5-5.2) g/dL Globulin g/dL Albumin/Globulin Ratio TSH, Ultra Sensitive (0.36-3.74) IU/mL Urine Color (YELLOW) Urine Appearance (CLEAR) Urine pH (5.0-6.5) Ur Specific [place] (1.010-1.025) Urine Protein (NEGATIVE) mg/dL Urine Glucose (UA) (NEGATIVE) mg/dL Urine Ketones (NEGATIVE) mg/dL Urine Occult Blood (NEGATIVE) Urine Nitrite (NEGATIVE) Urine Bilirubin (NEGATIVE) Urine Urobilinogen (NEGATIVE) mg/dL Ur Leukocyte Esterase (NEGATIVE) Urine RBC (0) Urine WBC (0) Ur Squamous Epith Cells (NS,R,O) Urine Bacteria (NS) Med Orders - Current: Current Medications Acetaminophen (Tylenol) 650 mg PO Q4H PRN PRN Reason: Pain (Mild 1-3)/fever Aspirin (Halfprin) 81 mg PO DAILY [facility] Duloxetine HCl (Cymbalta) 60 mg PO DAILY [facility] Last Admin: 08/14/17 11:37 Dose: 60 mg Gabapentin (Neurontin) 600 mg PO BID [facility] Last Admin: 08/14/17 11:36 Dose: 600 mg Hydroxyzine HCl (Atarax) 25 mg PO DAILY [facility] Hydroxyzine HCl (Atarax) 25 mg PO DAILY PRN PRN Reason: Anxiety Sodium Chloride (Normal Saline) 1,000 mls @ 75 mls/hr IV ASDIRECTED [facility] Last Admin: 08/14/17 02:40 Dose: 75 mls/hr Heparin Sodium/Sodium Chloride (Heparin 25,000 Units In 1/2 Ns 500 Ml) 500 mls @ 20.002 mls/hr IV TITRATE PENNY; Protocol Last Admin: 08/14/17 09:03 Dose: 10.43 units/kg/hr, 20.002 mls/hr Meloxicam (Mobic) 7.5 mg PO DAILY [facility] Latuda 80mg *Ptom 0 mg PO BEDTIME [facility] Discontinued Medications Aspirin (Aspirin) 324 mg PO ONETIME ONE Stop: 08/13/17 23:18 Last Admin: 08/13/17 23:24 Dose: 324 mg Diltiazem HCl (Diltiazem) 20 mg IVPUSH ONETIME ONE Stop: 08/13/17 23:10 Last Admin: 08/13/17 23:24 Dose: 20 mg Diltiazem HCl (Diltiazem) 20 mg IVPUSH ONETIME ONE Stop: 08/13/17 23:40 Last Admin: 08/13/17 23:49 Dose: 20 mg Heparin Sodium (Porcine) (Heparin Sodium) 5,000 units IVPUSH ONETIME ONE Stop: 08/14/17 08:17 Last Admin: 08/14/17 08:57 Dose: 5,000 units Hydroxyzine HCl (Atarax) 25 mg PO ONETIME ONE Stop: 08/14/17 10:05 Last Admin: 08/14/17 11:36 Dose: 25 mg Sodium Chloride (Normal Saline) 1,000 mls @ 0 mls/hr IV ASDIRECTED [facility] Stop: 08/17/17 23:04 Last Infusion: 08/14/17 00:26 Dose: 999 mls/hr Sodium Chloride (Normal Saline) 1,000 mls @ 999 mls/hr IV ASDIRECTED [facility] Last Admin: 08/14/17 01:31 Dose: 999 mls/hr Heparin Sodium/Dextrose (Heparin 25,000 Units In D5w 500 Ml) 25,000 units in 500 mls @ 20.002 mls/hr IV TITRATE [facility]; Protocol Metoprolol Tartrate (Lopressor) 12.5 mg PO ONETIME ONE Stop: 08/14/17 12:30 Last Admin: 08/14/17 12:37 Dose: 12.5 mg Non-Formulary Medication (Aspirin [Aspirin]) 325 mg PO DAILY [facility] Last Admin: 08/14/17 10:49 Dose: Not Given Non-Formulary Medication (Hydroxyzine Pamoate [Vistaril]) 100 mg PO Q6H PRN PRN Reason: DIRECTED Ondansetron HCl (Zofran) 4 mg IV Q4H PRN PRN Reason: Nausea/Vomiting
[2017-08-14 14:23] VITALS: BP 133/82
[2017-08-14] MEDS ORDERED: LATUDA 80 MG PO SCH (21:00)
[2017-08-15] MEDS ORDERED: hydrOXYzine HCl 25 MG Tab PO SCH (09:00)
[2017-08-15] MEDS ORDERED: Meloxicam 7.5 MG Tab PO SCH (09:00)
[2017-08-15] MEDS ORDERED: Aspirin 81 MG Tab.EC PO SCH (09:00)
== END 2017-08-14 14:14 | DRG 313 ==
LOC: FB.ED 22:43 → FB.MS 08-14 02:04 → FB.ICU 08-14 08:35 → OBSVTOIN 08-14 10:00
PROVIDERS: ADMIT Emergency Medicine; ATTEND Family Medicine
DX: R07.9 Chest pain, unspecified (principal); I24.9 Acute ischemic heart disease, unspecified; I48.0 Paroxysmal atrial fibrillation; K21.9 Gastro-esophageal reflux disease without esophagitis; G89.29 Other chronic pain; M54.30 Sciatica, unspecified side; F41.9 Anxiety disorder, unspecified; F31.9 Bipolar disorder, unspecified; F17.200 Nicotine dependence, unspecified, uncomplicated; E86.0 Dehydration; F15.10 Other stimulant abuse, uncomplicated; R05 Cough; I95.9 Hypotension, unspecified; H54.7 Unspecified visual loss; J40 Bronchitis, not specified as acute or chronic; Z86.010 Personal history of colon polyps; Z79.82 Long term (current) use of aspirin; Z79.899 Other long term (current) drug therapy
CPT/HCPCS: 36415 ×2; 71046; 80053; 81001; 82962; 83880; 84439; 84443; 84484 ×2; 85025 ×2; 85379; 85610; 86140; 93005 ×2; 96361; 96374; 99285; A9270; J1644 ×2; J3490 ×2; J7040 ×3; 85730

== ENCOUNTER 2017-09-04 08:43 | Emergency (ER) | payer MEDICARE, MEDICAID ==
[2017-09-04] MEDS ORDERED: Aspirin 81 MG Tab.Chew PO ONE (09:00)
[2017-09-04] MEDS ORDERED: Sodium Chloride 0.9% 10 ML Syringe FLUSH PRN (09:00)
[2017-09-04] MEDS: Nitroglycerin 0.4 MG Tab.SL SL PRN ×2 (09:05→10:21)
--- NOTE | 2017-09-04 09:09 | EDM.PDOC ---
ED HPI GENERAL MEDICAL PROBLEM - General Chief Complaint: Cardiovascular Problem Stated Complaint: CHEST PAIN Time Seen by Provider: 09/04/17 08:45 Source of Information: Reports: Patient, Old Records History Limitations: Reports: No Limitations - History of Present Illness INITIAL COMMENTS - FREE TEXT/NARRATIVE: Luke returns to [facility] ED with a relapse of precordial chest pain 10/13 yesterday evening about 9 am while sitting in a chair. There was no reported sweats, dizziness, palpitations, nausea or malaise. He took 4 81 mg ASA tabs and subsequently went to bed. This am there is still chest pain 10/13 near L breast. Of interest is a hospitalization in [place] last month for ACS, work up included angiogram which identified single vessel disease, but no other intervention. He is scheduled for a GXT tomorrow in [place] with Cardiology. - Related Data Allergies Allergy/AdvReac Type Severity Reaction Status Date / Time No Known Allergies Allergy Verified 08/13/17 23:39 Home Meds: Home Meds DULoxetine [Cymbalta] 60 mg PO DAILY 10/26/14 [History] Aspirin [Ecotrin] 81 mg PO DAILY 08/14/17 [History] Lurasidone HCl [Latuda] 40 mg PO BEDTIME 08/14/17 [History] hydrOXYzine HCl [hydrOXYzine] 25 mg PO DAILY tablet 08/14/17 [Rx] hydrOXYzine HCl [hydrOXYzine] 25 mg PO DAILY PRN tablet 08/14/17 [Rx] Carvedilol 12.5 mg PO BID 09/04/17 [History] Omeprazole 20 mg PO DAILY 09/04/17 [History] Rivaroxaban [Xarelto] 20 mg PO DAILY 09/04/17 [History] atorvaSTATin Calcium [Atorvastatin Calcium] 40 mg PO BEDTIME 09/04/17 [History] metFORMIN HCl [Metformin HCl] 500 mg PO BID 09/04/17 [History] Past Medical History - Past Health History Medical/Surgical History: Denies Medical/Surgical History HEENT History: Reports: Impaired Vision Other HEENT History: wears glasses Cardiovascular History: Reports: CAD, Other (See Below) Other Cardiovascular History: presented tonight with a-fib and rapid heartrate of 170 to ER Respiratory History: Reports: Bronchitis, Recurrent Other Respiratory History: BRONCHITIS, USES INHAILER does not use any more Gastrointestinal History: Reports: Colon Polyp, GERD, Hemorrhoids Other Gastrointestinal History: occ dearrhea Musculoskeletal History: Reports: Back Pain, Chronic Neurological History: Reports: Other (See Below) Other Neuro History: SIATICA Psychiatric History: Reports: Addiction, Anxiety, Bipolar, Depression, Panic Attack - Infectious Disease History Infectious Disease History: Reports: Chicken Pox - Past Surgical History HEENT Surgical History: Reports: None Cardiovascular Surgical History: Reports: None Respiratory Surgical History: Reports: None GI Surgical History: Reports: Colonoscopy, Hernia, Inguinal Neurological Surgical History: Reports: None Musculoskeletal Surgical History: Reports: None Dermatological Surgical History: Reports: None Social & Family History - Family History Family Medical History: Noncontributory - Tobacco Use Smoking Status *Q: Current Every Day Smoker Years of Tobacco use: 27 Packs/Tins Daily: 1 Second Hand Smoke Exposure: No - Caffeine Use Caffeine Use: Reports: Coffee - Alcohol Use Days Per Week of Alcohol Use: 0 - Recreational Drug Use Recreational Drug Use: No - Living Situation & Occupation Living situation: Reports: with Significant Other Occupation: Employed ED ROS GENERAL - Review of Systems Review Of Systems: See Below Constitutional: Reports: No Symptoms HEENT: Reports: No Symptoms Respiratory: Reports: No Symptoms Cardiovascular: Reports: Chest Pain Endocrine: Reports: No Symptoms GI/Abdominal: Reports: No Symptoms : Reports: No Symptoms Musculoskeletal: Reports: No Symptoms Skin: Reports: No Symptoms Neurological: Reports: No Symptoms Psychiatric: Reports: Anxiety Hematologic/Lymphatic: Reports: No Symptoms Immunologic: Reports: No Symptoms ED EXAM, GENERAL - Physical Exam Exam: See Below Exam Limited By: No Limitations General Appearance: Alert, WD/WN, No Apparent Distress, Anxious Eye Exam: Bilateral Eye: EOMI, Normal Inspection, PERRL Ears: Normal External Exam Nose: Normal Inspection Throat/Mouth: Normal Inspection, Normal Oropharynx, Normal Voice Head: Normocephalic Neck: Normal Inspection, Supple, Non-Tender Respiratory/Chest: No Respiratory Distress, Lungs Clear, Normal Breath Sounds, No Accessory Muscle Use, Chest Non-Tender Cardiovascular: Normal Peripheral Pulses, Regular Rate, Rhythm, No Edema, No JVD , No Murmur GI/Abdominal: Normal Bowel Sounds, Soft, Non-Tender, No Organomegaly, No Distention, No Mass (Male) Exam: Deferred Extremities: Normal Inspection, Normal Range of Motion Neurological: Alert, Oriented, CN II-XII Intact, Normal Cognition, Normal Gait, No Motor/Sensory Deficits Psychiatric: Normal Affect, Anxious Skin Exam: Warm, Dry, Intact, Normal Color Lymphatic: No Adenopathy Course - Vital Signs Text/Narrative:: Medical assessment was completed at the [facility] ED, with baseline CBC, BNP, and Troponin I <0.01. Ekg noted NSR. Chest pain improved from 6/10 to 1/10 with TNG 0.4 mg sl, but relapsed again in an hour at 6/10. A second TNG 0.4 mg sl reduced pain to a 1/10. I discussed case with Dr Herrera from [facility], and he will be transferred for further evaluation and treatment. Patient and family are in agreement with this treatment plan. Last Recorded V/S: Last Vital Signs Temp Pulse Resp BP 122/79 09/04/17 10:21 Pulse Ox - Orders/Labs/Meds Orders: Active Orders 24 hr Category Date Time Status Nitroglycerin [Nitrostat] Med 09/04/17 09:00 Active 0.4 mg SL Q5M PRN Sodium Chloride 0.9% [Saline Flush] Med 09/04/17 09:00 Active 10 ml FLUSH ASDIRECTED PRN Saline Lock Insert [OM.PC] Routine Oth 09/04/17 09:00 Ordered EKG 12 Lead [EK] Routine Ther 09/04/17 09:27 Ordered Medication Orders Nitroglycerin (Nitrostat) 0.4 mg SL Q5M PRN PRN Reason: Chest Pain Last Admin: 09/04/17 10:21 Dose: 0.4 mg Admin: 09/04/17 09:05 Dose: 0.4 mg Sodium Chloride (Saline Flush) 10 ml FLUSH ASDIRECTED PRN PRN Reason: Keep Vein Open Last Admin: 09/04/17 09:00 Dose: 10 ml Labs: Laboratory Tests 09/04/17 09/04/17 09/04/17 Range/Units 09:42 09:42 09:42 WBC 8.7 (4.5-12.0) X10-3/uL RBC 4.32 (4.30-5.75) x10(6)uL Hgb 14.1 (11.5-15.5) g/dL Hct 40.6 (30.0-51.3) % MCV 94.1 (80-96) fL MCH 32.6 (27.7-33.6) pg MCHC 34.6 (32.2-35.4) g/dL RDW 12.3 (11.5-15.5) % Plt Count 266 (125-369) X10(3)uL MPV 7.7 (7.4-10.4) fL Neut % (Auto) 56.0 (46-82) % Lymph % (Auto) 33.6 (13-37) % [place] % (Auto) 5.3 (4-12) % Eos % (Auto) 4 (1.0-5.0) % Baso % (Auto) 1 (0-2) % Neut # (Auto) 4.8 (1.6-8.3) # Lymph # (Auto) 2.9 (0.6-5.0) # [place]k # (Auto) 0.5 (0.0-1.3) # Eos # (Auto) 0.4 (0.0-0.8) # Baso # (Auto) 0.1 (0.0-0.2) # Sodium 140 (135-145) mmol/L Potassium 4.0 (3.5-5.3) mmol/L Chloride 106 D (100-110) mmol/L Carbon Dioxide 25 (21-32) mmol/L BUN 5 L (7-18) mg/dL Creatinine 0.9 (0.70-1.30) mg/dL Est Cr Clr Drug Dosing TNP Estimated GFR (MDRD) > 60 (>60) BUN/Creatinine Ratio 5.6 L (9-20) Glucose 116 (80-116) mg/dL Calcium 8.9 (8.6-10.2) mg/dL Troponin I < 0.017 L (<0.017-0.056) ng/mL Meds: Medications Generic Name Dose Route Start Last Admin Trade Name Freq PRN Reason Stop Dose Admin Nitroglycerin 0.4 mg 09/04/17 09:00 09/04/17 10:21 Nitrostat SL 0.4 mg Q5M PRN Administration Chest Pain Sodium Chloride 10 ml 09/04/17 09:00 09/04/17 09:00 Saline Flush FLUSH 10 ml ASDIRECTED PRN Administration Keep Vein Open Discontinued Medications Generic Name Dose Route Start Last Admin Trade Name Freq PRN Reason Stop Dose Admin Aspirin 243 mg 09/04/17 09:00 09/04/17 09:05 Aspirin PO 09/04/17 09:01 243 mg ONETIME ONE Administration Departure - Departure Time of Disposition: 11:11 Disposition: DC/Tfer to Other 70 Reason for Transfer *Q: Primary PCI Indicated Condition: Fair Clinical Impression: Unstable angina pectoris Referrals: Idalia Santana NP [Primary Care Provider] - Forms: ED Department Discharge - Problem List & Annotations (1) Unstable angina pectoris SNOMED Code(s): 4680104, 187747640 Code(s): I20.0 - UNSTABLE ANGINA Status: Acute Current Visit: Yes Annotation/Comment:: Luke will be transferred to [facility] for Cardiology assessment and intervention as directed. He is stable for transport. - Problem List Review Problem List Initiated/Reviewed/Updated: Yes - My Orders Last 24 Hours: My Active Orders 09/04/17 09:00 Nitroglycerin [Nitrostat] 0.4 mg SL Q5M PRN Sodium Chloride 0.9% [Saline Flush] 10 ml FLUSH ASDIRECTED PRN Saline Lock Insert [OM.PC] Routine 09/04/17 09:27 EKG 12 Lead [EK] Routine - Assessment/Plan Last 24 Hours: My Active Orders 09/04/17 09:00 Nitroglycerin [Nitrostat] 0.4 mg SL Q5M PRN Sodium Chloride 0.9% [Saline Flush] 10 ml FLUSH ASDIRECTED PRN Saline Lock Insert [OM.PC] Routine 09/04/17 09:27 EKG 12 Lead [EK] Routine Plan: Follow up with PCP.
[2017-09-04 10:22] VITALS: BP 122/79
== END 2017-09-04 11:35 | disposition other institution (70) ==
LOC: FB.ED 08:43
DX: I20.0 Unstable angina (principal); F17.210 Nicotine dependence, cigarettes, uncomplicated; Z79.899 Other long term (current) drug therapy; Z79.82 Long term (current) use of aspirin
CPT/HCPCS: 36415; 80048; 84484; 85025; 93005; 99285; A9270; J7050

== ENCOUNTER 2019-01-01 12:35 | Emergency (ER) | payer MEDICARE, MEDICAID ==
[2019-01-01] MEDS: Sodium Chloride 0.9% 10 ML Syringe FLUSH PRN ×2 (12:54→13:24)
[2019-01-01] MEDS ORDERED: Aspirin 81 MG Tab.Chew PO ONE (12:55)
[2019-01-01] MEDS ORDERED: Morphine 4 MG/ML Syringe IVPUSH ONE (13:07)
--- NOTE | 2019-01-01 13:54 | EDM.PDOC ---
ED HPI GENERAL MEDICAL PROBLEM - General Chief Complaint: Chest Pain Stated Complaint: CHEST PAIN Time Seen by Provider: 01/01/19 12:50 Source of Information: Reports: Patient - History of Present Illness INITIAL COMMENTS - FREE TEXT/NARRATIVE: Patient is a 43 Y WM who presented to the ED because of 4 day history of left sided chest pain. the pain is sharp 8/10 took 1 NTG and usually helps but never went away. This morning the pain intensified and then he took 3 NTG which resolved the pain completely but 10 minutes later the pain came back. He denies any N/V,dyspnea or diaphoresis. He had a previous AMI 1 year ago,apparently they are not able to put a stent due to the location of the heart blockage. 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 chest Pain Score (Numeric/FACES): 4 - Related Data Allergies Allergy/AdvReac Type Severity Reaction Status Date / Time No Known Allergies Allergy Verified 01/01/19 13:22 Home Meds: Home Meds DULoxetine [Cymbalta] 60 mg PO DAILY 10/26/14 [History] Aspirin [Ecotrin EC] 81 mg PO DAILY 08/14/17 [History] Lurasidone HCl [Latuda] 40 mg PO BEDTIME 08/14/17 [History] hydrOXYzine HCl [hydrOXYzine] 25 mg PO DAILY tablet 08/14/17 [Rx] hydrOXYzine HCl [hydrOXYzine] 25 mg PO DAILY PRN tablet 08/14/17 [Rx] Carvedilol 12.5 mg PO BID 09/04/17 [History] Omeprazole 20 mg PO DAILY 09/04/17 [History] Rivaroxaban [Xarelto] 20 mg PO DAILY 09/04/17 [History] atorvaSTATin Calcium [Atorvastatin Calcium] 40 mg PO BEDTIME 09/04/17 [History] metFORMIN HCl [Metformin HCl] 500 mg PO BID 09/04/17 [History] Isosorbide Mononitrate [Imdur] 60 mg PO DAILY 01/01/19 [History] Nitroglycerin 0.4 mg PO Q5M PRN 01/01/19 [History] Past Medical History - Past Health History Medical/Surgical History: Denies Medical/Surgical History HEENT History: Reports: Impaired Vision Other HEENT History: wears glasses Cardiovascular History: Reports: Afib, Angina, CAD, [place], Other (See Below) Other Cardiovascular History: hx of afib Respiratory History: Reports: Bronchitis, Recurrent Other Respiratory History: BRONCHITIS, USES INHAILER does not use any more Gastrointestinal History: Reports: Colon Polyp, GERD, Hemorrhoids Other Gastrointestinal History: occ dearrhea Musculoskeletal History: Reports: Back Pain, Chronic Neurological History: Reports: Other (See Below) Other Neuro History: SIATICA Psychiatric History: Reports: Addiction, Anxiety, Bipolar, Depression, Panic Attack, Other (See Below) Other Psychiatric History: bipolar type 2 - Infectious Disease History Infectious Disease History: Reports: Chicken Pox - Past Surgical History HEENT Surgical History: Reports: None Cardiovascular Surgical History: Reports: Other (See Below) Other Cardiovascular Surgeries/Procedures: unable to have stent placement Respiratory Surgical History: Reports: None GI Surgical History: Reports: Colonoscopy, Hernia, Inguinal Neurological Surgical History: Reports: None Musculoskeletal Surgical History: Reports: None Dermatological Surgical History: Reports: None Social & Family History - Family History Family Medical History: Noncontributory - Tobacco Use Smoking Status *Q: Current Every Day Smoker Years of Tobacco use: 30 Packs/Tins Daily: 1 - Caffeine Use Caffeine Use: Reports: Coffee - Recreational Drug Use Recreational Drug Use: No - Living Situation & Occupation Living situation: Reports: with Significant Other Occupation: Employed ED ROS GENERAL - Review of Systems Review Of Systems: See Below Constitutional: Reports: No Symptoms HEENT: Reports: No Symptoms Respiratory: Reports: No Symptoms Cardiovascular: Reports: Chest Pain. Denies: Palpitations Endocrine: Reports: No Symptoms GI/Abdominal: Reports: No Symptoms : Reports: No Symptoms Musculoskeletal: Reports: No Symptoms Skin: Reports: No Symptoms ED EXAM, GENERAL - Physical Exam Exam: See Below Exam Limited By: No Limitations General Appearance: Alert, No Apparent Distress Nose: Normal Inspection Throat/Mouth: Normal Inspection, Normal Lips Head: Atraumatic, Other Neck: Normal Inspection Respiratory/Chest: No Respiratory Distress, Lungs Clear, Normal Breath Sounds, No Accessory Muscle Use, Chest Non-Tender Cardiovascular: Normal Peripheral Pulses, Regular Rate, Rhythm, No Edema, No Gallop, No JVD, No Murmur, No Rub GI/Abdominal: Normal Bowel Sounds EKG INTERPRETATION EKG Date: 01/01/19 Rhythm: NSR Course - Vital Signs Text/Narrative:: labs,EKG,Chest XR discussed with patient ASA Morphine 4 mg IV x1 and his pain is down to a0/10. Case dscussed with [facility] will increase his imdur to 90 mg/day and will follow up with them this week Last Recorded V/S: Last Vital Signs Temp 36.6 C 01/01/19 12:48 Pulse 73 01/01/19 13:45 Resp 17 01/01/19 13:45 BP 121/72 01/01/19 13:45 Pulse Ox 97 01/01/19 13:45 - Orders/Labs/Meds Orders: Active Orders 24 hr Category Date Time Status Chest 1V Frontal [CR] Stat Exams 01/01/19 13:09 Taken Sodium Chloride 0.9% [Saline Flush] Med 01/01/19 12:52 Active 10 ml FLUSH ASDIRECTED PRN EKG 12 Lead [EK] Routine Ther 01/01/19 12:54 Ordered Medication Orders Sodium Chloride (Saline Flush) 10 ml FLUSH ASDIRECTED PRN PRN Reason: flush Last Admin: 01/01/19 13:24 Dose: 10 ml Admin: 01/01/19 12:54 Dose: 10 ml Labs: Laboratory Tests 01/01/19 01/01/19 01/01/19 Range/Units 12:58 12:58 12:58 WBC 9.4 (4.5-12.0) X10-3/uL RBC 4.54 (4.30-5.75) x10(6)uL Hgb 13.9 (13.5-17.8) g/dL Hct 41.1 (30.0-51.3) % MCV 90.4 (80-96) fL MCH 30.7 (27.7-33.6) pg MCHC 34.0 (32.2-35.4) g/dL RDW 12.8 (11.5-15.5) % Plt Count 302 (125-369) X10(3)uL MPV 7.0 L (7.4-10.4) fL Neut % (Auto) 53.9 (46-82) % Lymph % (Auto) 33.3 (13-37) % [place] % (Auto) 7.6 (4-12) % Eos % (Auto) 5 (1.0-5.0) % Baso % (Auto) 1 (0-2) % Neut # (Auto) 5.1 (1.6-8.3) # Lymph # (Auto) 3.1 (0.6-5.0) # Hopkins # (Auto) 0.7 (0.0-1.3) # Eos # (Auto) 0.4 (0.0-0.8) # Baso # (Auto) 0.1 (0.0-0.2) # PT 11.0 (8.7-11.1) INR 1.13 (0.89-1.13) APTT 32.2 (24.4-33.2) SECONDS Sodium 141 (135-145) mmol/L Potassium 4.3 (3.5-5.3) mmol/L Chloride 104 (100-110) mmol/L Carbon Dioxide 26 (21-32) mmol/L BUN 6 L (7-18) mg/dL Creatinine 0.9 (0.70-1.30) mg/dL Est Cr Clr Drug Dosing 113.77 mL/min Estimated GFR (MDRD) > 60 (>60) BUN/Creatinine Ratio 6.7 L (9-20) Glucose 132 H (80-116) mg/dL Calcium 9.0 (8.6-10.2) mg/dL Total Bilirubin 0.4 (0.1-1.3) mg/dL AST 19 D (5-25) IU/L ALT 36 D (12-36) U/L Alkaline Phosphatase 87 (56-112) IU/L Troponin I (<0.017-0.056) ng/mL Total Protein 7.5 (6.0-8.0) g/dL Albumin 3.9 (3.5-5.2) g/dL Globulin 3.6 g/dL Albumin/Globulin Ratio 1.1 01/01/19 Range/Units 12:58 WBC (4.5-12.0) X10-3/uL RBC (4.30-5.75) x10(6)uL Hgb (13.5-17.8) g/dL Hct (30.0-51.3) % MCV (80-96) fL MCH (27.7-33.6) pg MCHC (32.2-35.4) g/dL RDW (11.5-15.5) % Plt Count (125-369) X10(3)uL MPV (7.4-10.4) fL Neut % (Auto) (46-82) % Lymph % (Auto) (13-37) % Hopkins % (Auto) (4-12) % Eos % (Auto) (1.0-5.0) % Baso % (Auto) (0-2) % Neut # (Auto) (1.6-8.3) # Lymph # (Auto) (0.6-5.0) # Hopkins # (Auto) (0.0-1.3) # Eos # (Auto) (0.0-0.8) # Baso # (Auto) (0.0-0.2) # PT (8.7-11.1) INR (0.89-1.13) APTT (24.4-33.2) SECONDS Sodium (135-145) mmol/L Potassium (3.5-5.3) mmol/L Chloride (100-110) mmol/L Carbon Dioxide (21-32) mmol/L BUN (7-18) mg/dL Creatinine (0.70-1.30) mg/dL Est Cr Clr Drug Dosing mL/min Estimated GFR (MDRD) (>60) BUN/Creatinine Ratio (9-20) Glucose (80-116) mg/dL Calcium (8.6-10.2) mg/dL Total Bilirubin (0.1-1.3) mg/dL AST (5-25) IU/L ALT (12-36) U/L Alkaline Phosphatase (56-112) IU/L Troponin I < 0.017 L (<0.017-0.056) ng/mL Total Protein (6.0-8.0) g/dL Albumin (3.5-5.2) g/dL Globulin g/dL Albumin/Globulin Ratio Meds: Medications Generic Name Dose Route Start Last Admin Trade Name Freq PRN Reason Stop Dose Admin Sodium Chloride 10 ml 01/01/19 12:52 01/01/19 13:24 Saline Flush FLUSH 10 ml ASDIRECTED PRN Administration flush Discontinued Medications Generic Name Dose Route Start Last Admin Trade Name Freq PRN Reason Stop Dose Admin Aspirin 162 mg 01/01/19 12:55 01/01/19 12:50 Aspirin PO 01/01/19 12:56 162 mg ONETIME ONE Administration Morphine Sulfate 4 mg 01/01/19 13:07 01/01/19 13:19 Morphine IVPUSH 01/01/19 13:08 4 mg ONETIME ONE Administration Departure - Departure Time of Disposition: 14:30 Disposition: Home, Self-Care 01 Clinical Impression: Chest pain Forms: ED Department Discharge - My Orders Last 24 Hours: My Active Orders 01/01/19 12:52 Sodium Chloride 0.9% [Saline Flush] 10 ml FLUSH ASDIRECTED PRN 01/01/19 12:54 EKG 12 Lead [EK] Routine 01/01/19 13:09 Chest 1V Frontal [CR] Stat - Assessment/Plan Last 24 Hours: My Active Orders 01/01/19 12:52 Sodium Chloride 0.9% [Saline Flush] 10 ml FLUSH ASDIRECTED PRN 01/01/19 12:54 EKG 12 Lead [EK] Routine 01/01/19 13:09 Chest 1V Frontal [CR] Stat
[2019-01-01 15:38] VITALS: BP 123/83
== END 2019-01-01 14:45 | disposition home or self-care (01) ==
LOC: FB.ED 12:35
DX: R07.9 Chest pain, unspecified (principal); I25.2 Old myocardial infarction; K21.9 Gastro-esophageal reflux disease without esophagitis; F41.9 Anxiety disorder, unspecified; F32.9 Major depressive disorder, single episode, unspecified; F17.210 Nicotine dependence, cigarettes, uncomplicated; Z79.82 Long term (current) use of aspirin; Z79.899 Other long term (current) drug therapy
CPT/HCPCS: 36415; 71045; 80053; 84484; 85025; 85610; 85730; 93005; 96374; 99285; A9270; J2270

== ENCOUNTER → 2019-03-16 | Outpatient (CLI) | payer MEDICARE, MEDICAID | LOC: FB.MH 08:00 | PROVIDERS: ATTEND Psychologist Clinical | DX: F31.81 Bipolar II disorder (principal) | CPT/HCPCS: 90834 ==

== ENCOUNTER → 2019-03-18 | Outpatient (CLI) | payer MEDICARE, MEDICAID | LOC: FB.MH 08:00 | PROVIDERS: ATTEND Psychiatry & Neurology Psychiatry | DX: F31.32 Bipolar disorder, current episode depressed, moderate (principal); F31.9 Bipolar disorder, unspecified; F41.1 Generalized anxiety disorder | CPT/HCPCS: 99213 ==

== ENCOUNTER → 2019-03-19 | Outpatient (CLI) | payer MEDICARE, MEDICAID | LOC: FB.MH 08:00 | PROVIDERS: ATTEND Psychiatry & Neurology Psychiatry | DX: F31.9 Bipolar disorder, unspecified (principal); F41.1 Generalized anxiety disorder | CPT/HCPCS: 90792 ==

== ENCOUNTER 2019-11-26 21:00 | Emergency (ER) | payer MEDICARE, MEDICAID ==
--- NOTE | 2019-11-26 21:33 | EDM.PDOC ---
ED HPI GENERAL MEDICAL PROBLEM - General Chief Complaint: Chest Pain Stated Complaint: CHEST PAIN Time Seen by Provider: 11/26/19 21:33 Source of Information: Reports: Patient History Limitations: Reports: No Limitations - History of Present Illness INITIAL COMMENTS - FREE TEXT/NARRATIVE: 44-year-old male who reports that he has had pain in his chest off and on for the past 2 years since he had a heart attack at that time and was treated with an angioplasty but no stent was placed. He reports that the pain is a sore pain and a sharp pain in his left chest that seems to come and go and they last anywhere from a few minutes to 2-4 hours. He had episodes of this pain yesterday and he evaluation the pain and it seemed to go away after a few hours and then again today at approximately 3-4 pm the patient reports she developed pain again and this time the pain has been associated with tingling in his left hand. He reports that when he had his heart attack before he had tingling in his left hand and this is what prompted him to come the emergency department for evaluation. The pain is currently a 4/10 but with a 7/10 and is worse. He initially told me that nothing really seemed to make the pain better or worse but it is worse with palpation. He is having no shortness of breath associated with this. There is been no nausea or vomiting. He has no back pain. He has no neck or jaw pain. He did feel a little short of breath with this (off and on). He has no shortness of breath now. He reports that he did take 1 baby aspirin this morning. He feels that the pain in his chest is going away even as I am talking with him. There are no other associated signs or symptoms. There are no other modifying factors. 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) - Related Data Allergies Allergy/AdvReac Type Severity Reaction Status Date / Time No Known Allergies Allergy Verified 11/26/19 23:19 Home Meds: Home Meds Aspirin [Ecotrin EC] 81 mg PO DAILY 08/14/17 [History] Omeprazole 20 mg PO DAILY 09/04/17 [History] Rivaroxaban [Xarelto] 20 mg PO DAILY 09/04/17 [History] atorvaSTATin Calcium [Atorvastatin Calcium] 40 mg PO BEDTIME 09/04/17 [History] carvediloL [Carvedilol] 12.5 mg PO BID 09/04/17 [History] metFORMIN HCl [Metformin HCl] 1,000 mg PO BID 09/04/17 [History] Isosorbide Mononitrate [Imdur] 30 mg PO DAILY #30 tab.er 01/01/19 [Rx] Isosorbide Mononitrate [Imdur] 60 mg PO DAILY 01/01/19 [History] Nitroglycerin 0.4 mg PO Q5M PRN 01/01/19 [History] Cholestyramine/Sucrose [Cholestyramine] 4 gm PO DAILY 11/26/19 [History] DULoxetine [Cymbalta] 60 mg PO DAILY 11/26/19 [History] Gabapentin [Neurontin] 600 mg PO DAILY 11/26/19 [History] Gabapentin [Neurontin] 900 mg PO BEDTIME 11/26/19 [History] Lurasidone HCl [Latuda] 60 mg PO DAILY 11/26/19 [History] hydrOXYzine pamoate [Hydroxyzine Pamoate] 100 mg PO Q6H PRN 11/26/19 [History] tiZANidine [Zanaflex] 4 mg PO BEDTIME 11/26/19 [History] Past Medical History HEENT History: Reports: Impaired Vision Other HEENT History: wears glasses Cardiovascular History: Reports: Afib, Angina, CAD, [place], Other (See Below) Other Cardiovascular History: hx of afib Respiratory History: Reports: Bronchitis, Recurrent Other Respiratory History: BRONCHITIS, USES INHAILER does not use any more Gastrointestinal History: Reports: Colon Polyp, GERD, Hemorrhoids Other Gastrointestinal History: occ dearrhea Musculoskeletal History: Reports: Back Pain, Chronic Neurological History: Reports: Other (See Below) Other Neuro History: SIATICA Psychiatric History: Reports: Addiction, Anxiety, Bipolar, Depression, Panic Attack, Other (See Below) Other Psychiatric History: bipolar type 2 - Infectious Disease History Infectious Disease History: Reports: Chicken Pox - Past Surgical History Cardiovascular Surgical History: Reports: Percutaneous Transluminal Angioplasty (But no stent was placed because one could not be placed.) GI Surgical History: Reports: Colonoscopy, Hernia, Inguinal Neurological Surgical History: Reports: None Musculoskeletal Surgical History: Reports: None Dermatological Surgical History: Reports: None Social & Family History - Tobacco Use Smoking Status *Q: Current Every Day Smoker - Caffeine Use Caffeine Use: Reports: Coffee - Alcohol Use Alcohol Use History: No - Recreational Drug Use Recreational Drug Use: No - Living Situation & Occupation Occupation: Employed ED ROS GENERAL - Review of Systems Review Of Systems: See Below Constitutional: Reports: No Symptoms HEENT: Reports: No Symptoms Respiratory: Reports: Shortness of Breath (Mild sense of shortness of breath that was present earlier but has resolved.) Cardiovascular: Reports: Chest Pain Endocrine: Reports: No Symptoms GI/Abdominal: Reports: No Symptoms : Reports: No Symptoms Musculoskeletal: Reports: No Symptoms Skin: Reports: No Symptoms Neurological: Reports: No Symptoms Hematologic/Lymphatic: Reports: No Symptoms Immunologic: Reports: No Symptoms ED EXAM, GENERAL - Physical Exam Exam: See Below Exam Limited By: No Limitations General Appearance: Alert, WD/WN, No Apparent Distress Eye Exam: Bilateral Eye: EOMI, Normal Inspection, PERRL Ears: Normal External Exam, Hearing Grossly Normal Ear Exam: Bilateral Ear: Auricle Normal Nose: Normal Inspection, Normal Mucosa, No Blood Throat/Mouth: Normal Oropharynx, Normal Voice Head: Atraumatic, Normocephalic Neck: Normal Inspection, Supple, Non-Tender, Full Range of Motion Respiratory/Chest: No Respiratory Distress, Lungs Clear, Normal Breath Sounds, No Accessory Muscle Use, Chest Non-Tender Cardiovascular: Normal Peripheral Pulses, Regular Rate, Rhythm, No JVD Peripheral Pulses: 2+: Radial (L), Radial (R), Dorsalis Pedis (L), Dorsalis Pedis (R) GI/Abdominal: Normal Bowel Sounds, Soft, Non-Tender, No Mass Back Exam: Normal Inspection Extremities: Normal Inspection, Normal Range of Motion, Non-Tender, No Pedal Edema, Normal Capillary Refill Neurological: Alert, Oriented, CN II-XII Intact, Normal Cognition, No Motor/Sensory Deficits Psychiatric: Flat Affect (But he is appropriately responsive and interactive. He has good eye contact.) Skin Exam: Warm, Dry, Intact, Normal Color, No Rash EKG INTERPRETATION EKG Date: 11/26/19 Time: 21:11 Rhythm: NSR Rate (Beats/Min): 76 Decker: Normal P-Wave: Present QRS: Normal ST-T: Normal QT: Normal Comparison: No Change (No change in EKG performed on 01/01/2019. This is a normal EKG.) Course - Vital Signs Last Recorded V/S: Last Vital Signs Temp 36.4 C 11/26/19 21:10 Pulse 77 11/26/19 21:10 Resp 13 11/26/19 21:10 BP 125/103 H 11/26/19 21:10 Pulse Ox 97 11/26/19 21:10 - Orders/Labs/Meds Orders: Active Orders 24 hr Category Date Time Status EKG Documentation Completion [RC] ASDIRECTED Care 11/26/19 21:46 Active Peripheral IV Insertion Adult [OM.PC] Routine Oth 11/26/19 21:44 Ordered EKG 12 Lead [EK] Routine Ther 11/26/19 21:44 Ordered Labs: Laboratory Tests 11/26/19 11/26/19 11/26/19 Range/Units 21:57 21:57 21:57 WBC 8.6 (4.5-12.0) X10-3/uL RBC 4.64 (4.30-5.75) x10(6)uL Hgb 13.9 (13.5-17.8) g/dL Hct 40.6 (30.0-51.3) % MCV 87.6 (80-96) fL MCH 30.0 (27.7-33.6) pg MCHC 34.2 (32.2-35.4) g/dL RDW 12.2 (11.5-15.5) % Plt Count 299 (125-369) X10(3)uL MPV 6.9 L (7.4-10.4) fL Neut % (Auto) 58.9 (46-82) % Lymph % (Auto) 30.7 (13-37) % [place] % (Auto) 5.6 (4-12) % Eos % (Auto) 4 (1.0-5.0) % Baso % (Auto) 1 (0-2) % Neut # (Auto) 5.0 (1.6-8.3) # Lymph # (Auto) 2.6 (0.6-5.0) # [place] # (Auto) 0.5 (0.0-1.3) # Eos # (Auto) 0.4 (0.0-0.8) # Baso # (Auto) 0.1 (0.0-0.2) # D-Dimer, Quantitative 0.21 (0.0-0.59) mg/LFEU Sodium 135 (135-145) mmol/L Potassium 3.6 (3.5-5.3) mmol/L Chloride 101 (100-110) mmol/L Carbon Dioxide 24 (21-32) mmol/L BUN 7 (7-18) mg/dL Creatinine 1.1 (0.70-1.30) mg/dL Est Cr Clr Drug Dosing TNP Estimated GFR (MDRD) > 60 (>60) BUN/Creatinine Ratio 6.4 L (9-20) Glucose 256 H D (80-116) mg/dL Calcium 8.6 (8.6-10.2) mg/dL Magnesium 1.8 (1.8-2.5) mg/dL Total Bilirubin 0.4 (0.1-1.3) mg/dL AST 13 D (5-25) IU/L ALT 31 D (12-36) U/L Alkaline Phosphatase 105 (56-112) IU/L Troponin I (4.0-60.3) pg/mL Total Protein 6.9 (6.0-8.0) g/dL Albumin 3.7 (3.5-5.2) g/dL Globulin 3.2 g/dL Albumin/Globulin Ratio 1.2 // Range/Units 21:57 WBC (4.5-12.0) X10-3/uL RBC (4.30-5.75) x10(6)uL Hgb (13.5-17.8) g/dL Hct (30.0-51.3) % MCV (80-96) fL MCH (27.7-33.6) pg MCHC (32.2-35.4) g/dL RDW (11.5-15.5) % Plt Count (125-369) X10(3)uL MPV (7.4-10.4) fL Neut % (Auto) (46-82) % Lymph % (Auto) (13-37) % [place] % (Auto) (4-12) % Eos % (Auto) (1.0-5.0) % Baso % (Auto) (0-2) % Neut # (Auto) (1.6-8.3) # Lymph # (Auto) (0.6-5.0) # [place] # (Auto) (0.0-1.3) # Eos # (Auto) (0.0-0.8) # Baso # (Auto) (0.0-0.2) # D-Dimer, Quantitative (0.0-0.59) mg/LFEU Sodium (135-145) mmol/L Potassium (3.5-5.3) mmol/L Chloride (100-110) mmol/L Carbon Dioxide (21-32) mmol/L BUN (7-18) mg/dL Creatinine (0.70-1.30) mg/dL Est Cr Clr Drug Dosing Estimated GFR (MDRD) (>60) BUN/Creatinine Ratio (9-20) Glucose (80-116) mg/dL Calcium (8.6-10.2) mg/dL Magnesium (1.8-2.5) mg/dL Total Bilirubin (0.1-1.3) mg/dL AST (5-25) IU/L ALT (12-36) U/L Alkaline Phosphatase (56-112) IU/L Troponin I 5.2 (4.0-60.3) pg/mL Total Protein (6.0-8.0) g/dL Albumin (3.5-5.2) g/dL Globulin g/dL Albumin/Globulin Ratio Meds: Medications Discontinued Medications Generic Name Dose Route Start Last Admin Trade Name Curtisq PRN Reason Stop Dose Admin Aspirin 243 mg 11/26/19 21:47 11/26/19 22:16 Aspirin PO 11/26/19 21:48 243 mg ONETIME ONE Administration Sodium Chloride 1,000 mls @ 100 mls/hr 11/26/19 22:00 11/26/19 22:15 Normal Saline IV 100 mls/hr ASDIRECTED PENNY Administration Nitroglycerin 0.4 mg 11/26/19 21:47 Nitrostat SL Q5M PRN Chest Pain Sodium Chloride 10 ml 11/26/19 21:44 11/26/19 21:10 Saline Flush FLUSH 10 ml ASDIRECTED PRN Administration Keep Vein Open - Radiology Interpretation Free Text/Narrative:: Portable chest x-ray showed no acute disease. - Re-Assessments/Exams Free Text/Narrative Re-Assessment/Exam: 11/26/19 23:15: Patient's EKG was normal. There is no change from previous EKG in December 2018. His d-dimer and troponin were normal. His serum electrolyte profile was normal. His glucose was 256. His chest x-ray was normal. The patient reports his chest pain is essentially gone. He has received no sublingual nitroglycerin but he did receive the aspirin 243 mg by mouth. With his past history of ischemic heart disease, his previous AZ and his continued smoking and history of diabetes, I did recommend to the patient that we admit him for continued cardiac monitoring and serial cardiac enzymes. I also gave him the option of waiting for another 2 hours to repeat his troponin and if it were negative then he more safe to go home at that time. He, instead, wants to go home right now. I have discussed with him that he may be having an acute coronary syndrome or unstable angina or even an AZ that has not shown itself yet and that he would risk missing that and significant morbidity or mortality if he were to go home now. He states that he understands these risks but he was still wanted to go home now. He is doing this against my advice but it is his choice. I have strongly urged him to follow-up with his primary provider in regard to not only this chest pain but also to his elevated blood sugar. Departure - Departure Time of Disposition: 23:30 Disposition: Home, Self-Care 01 Condition: Undetermined Clinical Impression: Elevated blood sugar Chest pain Qualifiers: Chest pain type: unspecified Qualified Code(s): R07.9 - Chest pain, unspecified Diabetes mellitus type 2, uncontrolled Qualifiers: Glycemic state: with hyperglycemia Qualified Code(s): E11.65 - Type 2 diabetes mellitus with hyperglycemia Instructions: Nonspecific Chest Pain, Adult, [id number] Referrals: Idalia Santana NP [Primary Care Provider] - Forms: ED Department Discharge Additional Instructions: Your EKG was normal. Your chest x-ray was normal. Your blood tests were all normal except for an elevated blood glucose of 256. As we discussed, with your chest pain and the arm pain, you're history of previous heart attack and known heart disease, your continued smoking and your elevated/uncontrolled blood sugars Bonnie I think that you are high risk for having problems with your heart and I did recommend that you stay in the hospital overnight to have this checked further. You did not want to stay in the hospital and you understand the risk associated with this. You should follow-up with your primary provider to your chest pain and also your elevated blood sugar. You may also come back to the emergency department at any time for reevaluation. Back to the emergency department for worsening chest pain, trouble breathing, vomiting or any other concerning sign or symptom. - My Orders Last 24 Hours: My Active Orders 11/26/19 21:44 Peripheral IV Insertion Adult [OM.PC] Routine EKG 12 Lead [EK] Routine 11/26/19 21:46 EKG Documentation Completion [RC] ASDIRECTED - Assessment/Plan Last 24 Hours: My Active Orders 11/26/19 21:44 Peripheral IV Insertion Adult [OM.PC] Routine EKG 12 Lead [EK] Routine 11/26/19 21:46 EKG Documentation Completion [RC] ASDIRECTED
[2019-11-26] MEDS ORDERED: Sodium Chloride 0.9% 10 ML Syringe FLUSH PRN (21:44)
[2019-11-26] MEDS ORDERED: Nitroglycerin 0.4 MG Tab.SL SL PRN (21:47)
[2019-11-26] MEDS ORDERED: Aspirin 81 MG Tab.Chew PO ONE (21:47)
[2019-11-26] MEDS ORDERED: Sodium Chloride 0.9% 1,000 ML IV SCH (22:00)
[2019-11-26 23:21] VITALS: BP 125/103; PULSE 77
--- NOTE | 2019-11-27 11:07 | CR ---
INDICATION: Chest pain. CHEST, ONE VIEW: Two portable AP upright views of the chest 11/26/19 were compared with 01/01/19 and 08/14/17. The heart remains normal in size and shape. Mediastinal was unremarkable. Overlying EKG leads are noted. An active infiltrate or effusion was not identified. IMPRESSION: No acute process. MTDD
== END 2019-11-26 23:44 | disposition home or self-care (01) ==
LOC: FB.ED 21:00
DX: R07.9 Chest pain, unspecified (principal); E11.65 Type 2 diabetes mellitus with hyperglycemia; I48.91 Unspecified atrial fibrillation; I25.10 Atherosclerotic heart disease of native coronary artery without angina pectoris; I25.2 Old myocardial infarction; K21.9 Gastro-esophageal reflux disease without esophagitis; F41.0 Panic disorder [episodic paroxysmal anxiety]; F31.9 Bipolar disorder, unspecified; F17.200 Nicotine dependence, unspecified, uncomplicated; Z79.82 Long term (current) use of aspirin; Z79.84 Long term (current) use of oral hypoglycemic drugs; Z79.899 Other long term (current) drug therapy
CPT/HCPCS: 36415; 71045; 80053; 83735; 84484; 85025; 85379; 93005; 99285; A9270; J7030

== ENCOUNTER 2024-10-04 13:50 | Emergency (ER) | payer MEDICARE ==
[2024-10-04 14:18] LABS: BASOPHILS ABSOLUTE AUTO 0.1 x10-3/uL (0.0-0.3); BASOPHILS PERCENT AUTO 0.7 % (0.3-3.8); EOSINOPHILS ABSOLUTE AUTO 0.2 x10-3/uL (0.0-0.6); EOSINOPHILS PERCENT AUTO 1.5 % (0.1-6.8); HEMATOCRIT 40.7 % (38.3-50.1); HEMOGLOBIN 14.4 g/dL (12.9-17.7); LYMPHOCYTES ABSOLUTE AUTO 1.8 x10-3/uL (0.5-4.5); LYMPHOCYTES PERCENT AUTO 13.8 % (15.8-45.3); MEAN CORPUSCULAR HEMOGLOBIN 31.6 pg (27.0-33.3); MEAN CORPUSCULAR HGB CONC 35.5 g/dL (28.7-35.3); MEAN CORPUSCULAR VOLUME 89.1 fL (80.8-98.7); MEAN PLATELET VOLUME 6.9 fL (6.7-11.0); MONOCYTES PERCENT AUTO 7.6 % (5.5-15.2); NEUTROPHILS ABSOLUTE AUTO 9.8 x10-3/uL (1.7-6.9); NEUTROPHILS PERCENT AUTO 76.4 % (40.3-71.8); PLATELET COUNT,PLT 268 x10(3)uL (117-477); RED BLOOD CELL COUNT 4.57 x10(6)uL (3.90-5.90); RED CELL DISTRIBUTION WIDTH 14.3 % (12.4-15.0); WHITE BLOOD CELL COUNT,WBC 12.8 x10-3/uL (3.2-10.1)
[2024-10-04 14:22] LABS: CALCIUM 9.1 mg/dL (8.6-10.2); CARBON DIOXIDE,CO2 24 mmol/L (21-32); CHLORIDE,CL 100 mmol/L (100-110); CREATININE 0.9 mg/dL (0.70-1.30); ESTIMATED GFR 104 mL/min (>60); GLUCOSE RANDOM 156 mg/dL (80-116); POTASSIUM,K 4.3 mmol/L (3.5-5.3); SODIUM,NA 133 mmol/L (135-145)
[2024-10-04 14:23] LABS: BLOOD UREA NITROGEN,BUN < 5 mg/dL (7-18); BUN/CREATININE RATIO 5.6 (9-20)
[2024-10-04 14:28] LABS: A/G RATIO 0.9; ALANINE AMINOTRANSFERASE,ALT 27 U/L (12-36); ALBUMIN 3.4 g/dL (3.5-5.2); ALKALINE PHOSPHATASE 90 IU/L (56-112); ASPARTATE AMNIOTRANSFERASE,AST 11 IU/L (5-25); BILIRUBIN TOTAL 0.4 mg/dL (0.1-1.3); PROTEIN TOTAL,TP 7.4 g/dL (6.0-8.0)
[2024-10-04] MEDS: Iopamidol 755 Mg/ML 100 ML Bottle IV SCH (15:05)
[2024-10-04 15:08] LABS: APPEARANCE,URINE CLEAR (CLEAR); BILIRUBIN,URINE NEGATIVE (NEGATIVE); COLOR,URINE YELLOW (YELLOW); GLUCOSE,URINE NORMAL (NORMAL); KETONES,URINE NEGATIVE (NEGATIVE); LEUKOCYTE ESTERASE,URINE NEGATIVE (NEGATIVE); NITRITE,URINE NEGATIVE (NEGATIVE); OCCULT BLOOD,URINE NEGATIVE (NEGATIVE); PROTEIN,URINE NEGATIVE (NEGATIVE); UROBILINOGEN,URINE NORMAL (NEGATIVE)
[2024-10-04] MEDS: Ciprofloxacin 500 MG Tab PO ONE (16:17)
[2024-10-04] MEDS: metroNIDAZOLE 500 MG Tab PO ONE (16:17)
[2024-10-04 16:21] VITALS: BP 115/81; PULSE 111
== END 2024-10-04 16:21 | disposition home or self-care (01) ==
LOC: FB.ED 13:50
DX: K57.32 Diverticulitis of large intestine without perforation or abscess without bleeding (principal); I25.10 Atherosclerotic heart disease of native coronary artery without angina pectoris; I25.2 Old myocardial infarction; I48.91 Unspecified atrial fibrillation; K21.9 Gastro-esophageal reflux disease without esophagitis; Z79.82 Long term (current) use of aspirin; Z79.899 Other long term (current) drug therapy; Z79.01 Long term (current) use of anticoagulants; Z79.84 Long term (current) use of oral hypoglycemic drugs
CPT/HCPCS: 36415; 74177; 80053; 81003; 85025; 99284; A9270; Q9967